=== PATIENT | male | born 1950 | race Caucasian/White ===

== ENCOUNTER 2018-06-18 19:23 | Inpatient (IN) | payer MEDICARE, BC ==
[~2018-06-18] VITALS: Ht 177.8 cm; Wt 80.6 kg
[2018-06-18 20:09] LABS: BASOPHILS % (AUTO) 1 % (0-10); EOSINOPHILS # (AUTO) 0.1 10^3/uL (0.0-0.3); EOSINOPHILS % (AUTO) 2 % (0-10); HEMATOCRIT 40 % (40-54); HEMOGLOBIN 14.1 G/DL (13.3-17.7); LYMPHOCYTES # (AUTO) 1.5 X 10^3 (1.0-4.0); LYMPHOCYTES % (AUTO) 28 % (12-44); MEAN CORPUSCULAR HEMOGLOBIN 31 PG (25-34); MEAN CORPUSCULAR HGB CONC 35 G/DL (32-36); MEAN CORPUSCULAR VOLUME 88 FL (80-99); MEAN PLATELET VOLUME 11.1 FL (7.4-10.4); MONOCYTES # (AUTO) 0.5 X 10^3 (0.0-1.0); MONOCYTES % (AUTO) 9 % (0-12); NEUTROPHILS # (AUTO) 3.4 X 10^3 (1.8-7.8); NEUTROPHILS % (AUTO) 61 % (42-75); PLATELET COUNT 212 10^3/uL (130-400); RED CELL DISTRIBUTION WIDTH 13.4 % (10.0-14.5); WHITE BLOOD COUNT 5.6 10^3/uL (4.3-11.0)
[2018-06-18 20:22] LABS: ALANINE AMINOTRANSFERASE 22 U/L (0-55); ALBUMIN 4.2 GM/DL (3.2-4.5); ALKALINE PHOSPHATASE 50 U/L (40-136); AMYLASE 47 U/L (25-125); BILIRUBIN,TOTAL 0.9 MG/DL (0.1-1.0); BUN/CREATININE RATIO 14; CALCIUM 9.8 MG/DL (8.5-10.1); CARBON DIOXIDE 23 MMOL/L (21-32); CHLORIDE 105 MMOL/L (98-107); CREATININE SERUM 1.18 MG/DL (0.60-1.30); GFR ESTIMATED > 60; GLUCOSE 119 MG/DL (70-105); LIPASE 27 U/L (8-78); POTASSIUM 3.9 MMOL/L (3.6-5.0); SODIUM 138 MMOL/L (135-145); TOTAL PROTEIN 6.6 GM/DL (6.4-8.2)
[2018-06-18] MEDS ORDERED: HOLD METFORMIN - RECEIVED CONTRAST 20 ML VIAL IV SCH (20:45)
[2018-06-18] MEDS ORDERED: IOHEXOL 350 MG/ML 100 ML (OMNIPAQUE 350) VIAL IV ONE (20:45)
[2018-06-18 20:49] LABS: PROTHROMBIN TIME PATIENT 13.2 SEC (12.2-14.7)
--- NOTE | 2018-06-18 20:51 | ED GI ---
General Chief Complaint: Rect Problems Stated Complaint: BLOOD IN STOOL Nursing Triage Note: PT STATES TODAY AROUND 1415 THIS AFTERNOON, HE EXPERIENCED A LOOSE STOOL THAT WAS DESCRIBED MIXED DARK RED AND BRIGHT RED BLOOD. HAS HAD FOUR LOOSE STOOL SINCE THEN, ALL SIMILAR IN CONSISTENCY Sepsis Screen: No Definite Risk Source of Information: Patient Exam Limitations: No Limitations History of Present Illness Date Seen by Provider: Jun 18, 2018 Time Seen by Provider: 20:00 Initial Comments 67-year-old male who presents to the emergency room with complaints of passing large amounts of bright red blood and clots that started around 1415 this afternoon. He has had were similar episodes and one on arrival to the emergency room since they have started. The the emergency room was tory red blood with several dark red clots. He denies pain with the GI bleeding. Timing/Duration: 4-6 Hours Associated Symptoms: Denies Symptoms Allergies and Home Medications Allergies Coded Allergies: No Allergy Information Available (Unverified , 06/18/18) Patient Home Medication List Home Medication List Reviewed: Yes Review of Systems Review of Systems Constitutional: see HPI; No chills, No fever Gastrointestinal: See HPI; Denies Abdominal Pain; Blood Streaked Stools; Denies Diarrhea, Denies Nausea; Rectal Bleeding; Denies Vomiting All Other Systems Reviewed Negative Unless Noted: Yes Past Tzeqipf-Oslngz-Tajalh Hx Past Med/Social Hx: Reviewed Nursing Past Med/Soc Hx Patient Social History Recent Foreign Travel: No Contact w/Someone Who Travel: No Recent Infectious Disease Expo: No Family Medical History Reviewed Nursing Family Hx Physical Exam Vital Signs Vital Signs - First Documented 06/18/18 19:41 Temp 98.3 Pulse 79 Resp 20 B/P (MAP) 150/118 (129) Pulse Ox 96 O2 Delivery Room Air Capillary Refill : Less Than 3 Seconds Height/Weight/BMI Height: 5'10.00" Weight: 185lbs. oz. 83.588575nz; BMI Method:Stated General Appearance: WD/WN, no apparent distress Respiratory: chest non-tender, lungs clear, normal breath sounds, no respiratory distress, no accessory muscle use Cardiovascular: normal peripheral pulses, regular rate, rhythm, no edema, no gallop, no JVD, no murmur Gastrointestinal: normal bowel sounds, non tender, soft, no organomegaly, no pulsatile mass Rectal: heme positive stool Extremities: normal capillary refill Neurologic/Psychiatric: alert, normal mood/affect, oriented x 3 Skin: normal color, warm/dry Progress/Results/Core Measures Results/Orders Lab Results Laboratory Tests Test 06/18/18 19:50 06/18/18 20:45 Range/Units White Blood Count 5.6 4.3-11.0 10^3/uL Red Blood Count 4.54 4.35-5.85 10^6/uL Hemoglobin 14.1 13.3-17.7 G/DL Hematocrit 40 40-54 % Mean Corpuscular Volume 88 80-99 FL Mean Corpuscular Hemoglobin 31 25-34 PG Mean Corpuscular Hemoglobin Concent 35 32-36 G/DL Red Cell Distribution Width 13.4 10.0-14.5 % Platelet Count 212 130-400 10^3/uL Mean Platelet Volume 11.1 H 7.4-10.4 FL Neutrophils (%) (Auto) 61 42-75 % Lymphocytes (%) (Auto) 28 12-44 % Monocytes (%) (Auto) 9 0-12 % Eosinophils (%) (Auto) 2 0-10 % Basophils (%) (Auto) 1 0-10 % Neutrophils # (Auto) 3.4 1.8-7.8 X 10^3 Lymphocytes # (Auto) 1.5 1.0-4.0 X 10^3 Monocytes # (Auto) 0.5 0.0-1.0 X 10^3 Eosinophils # (Auto) 0.1 0.0-0.3 10^3/uL Basophils # (Auto) 0.0 0.0-0.1 10^3/uL Prothrombin Time 13.2 12.2-14.7 SEC INR Comment 1.0 0.8-1.4 Sodium Level 138 135-145 MMOL/L Potassium Level 3.9 3.6-5.0 MMOL/L Chloride Level 105 98-107 MMOL/L Carbon Dioxide Level 23 21-32 MMOL/L Anion Gap 10 5-14 MMOL/L Blood Urea Nitrogen 16 7-18 MG/DL Creatinine 1.18 0.60-1.30 MG/DL Estimat Glomerular Filtration Rate > 60 BUN/Creatinine Ratio 14 Glucose Level 119 H 70-105 MG/DL Calcium Level 9.8 8.5-10.1 MG/DL Corrected Calcium 9.6 8.5-10.1 MG/DL Total Bilirubin 0.9 0.1-1.0 MG/DL Aspartate Amino Transf (AST/SGOT) 22 5-34 U/L Alanine Aminotransferase (ALT/SGPT) 22 0-55 U/L Alkaline Phosphatase 50 40-136 U/L Total Protein 6.6 6.4-8.2 GM/DL Albumin 4.2 3.2-4.5 GM/DL Amylase Level 47 25-125 U/L Lipase 27 8-78 U/L Urine Color YELLOW Urine Clarity CLEAR Urine pH 6 5-9 Urine Specific Diggs 1.015 L 1.016-1.022 Urine Protein NEGATIVE NEGATIVE Urine Glucose (UA) NEGATIVE NEGATIVE Urine Ketones NEGATIVE NEGATIVE Urine Nitrite NEGATIVE NEGATIVE Urine Bilirubin NEGATIVE NEGATIVE Urine Urobilinogen NORMAL NORMAL MG/DL Urine Leukocyte Esterase NEGATIVE NEGATIVE Urine RBC (Auto) NEGATIVE NEGATIVE Urine RBC NONE /HPF Urine WBC NONE /HPF Urine Squamous Epithelial Cells RARE /HPF Urine Crystals NONE /LPF Urine Bacteria NEGATIVE /HPF Urine Casts NONE /LPF Urine Mucus NEGATIVE /LPF Urine Culture Indicated NO My Orders Orders - JANE BEDOYA Comprehensive Metabolic Panel (06/18/18 20:01) Lipase (06/18/18 20:01) Amylase (06/18/18 20:01) Ua Culture If Indicated (06/18/18 20:01) Ed Iv/Invasive Line Start (06/18/18 20:01) Cbc With Automated Diff (06/18/18 20:01) Type And Screen (06/18/18 20:01) Ct Abdomen/Pelvis W (06/18/18 20:20) Iohexol Injection (Omnipaque 350 Mg/Ml 1 (06/18/18 20:45) Received Contrast (Hold Metformin- Contr (06/18/18 20:45) Protime With Inr (06/18/18 20:38) Ondansetron Injection (Zofran Injectio (06/18/18 22:45) Medications Given in ED Current Medications Medications Dose Ordered Sig/Nigel Route Start Time Stop Time Status Last Admin Dose Admin Iohexol 100 ml ONCE ONCE IV 06/18/18 20:45 06/18/18 21:46 DC 06/18/18 22:03 100 ML Ondansetron HCl 4 mg ONCE ONCE IVP 06/18/18 22:45 06/18/18 22:46 DC 06/18/18 22:51 4 MG Vital Signs/I&O 06/18/18 19:41 Temp 98.3 Pulse 79 Resp 20 B/P (MAP) 150/118 (129) Pulse Ox 96 O2 Delivery Room Air Blood Pressure Mean: 129 Progress Progress Note : Time: 22:36 Progress Note I have seen and evaluated the patient. I have informed him of his laboratory and imaging studies. I discussed these findings with Dr. Lara and Dr. Ivory. They agree to accept the patient to their services. Dr. Ivory recommends nothing by mouth and recheck hemoglobin in 6 hours. Diagnostic Imaging Diagonstic Imaging: CT Plain Films/CT/US/NM/MRI: abdomen, pelvis Comments NAME: MILY ALBARADO MED REC#: [id number] PT STATUS: REG ER : 1950 PHYSICIAN: JANE BEDOYA ADMIT DATE: 06/18/18/ER Signed Date of Exam:06/18/18 CT ABDOMEN/PELVIS W PROCEDURE: CT abdomen and pelvis with contrast. TECHNIQUE: Multiple contiguous axial images were obtained through the abdomen and pelvis after administration of intravenous contrast. Auto Exposure Controls were utilized during the CT exam to meet ALARA standards for radiation dose reduction. INDICATION: Bloody watery stools 4 times this morning. No pain, previous appendectomy. COMPARISON STUDIES: None FINDINGS: The lung bases are clear. Liver, gallbladder, spleen, pancreas, adrenal glands and kidneys appear normal. Urinary bladder normal. There is no ascites, free air or abnormal adenopathy. Mild arteriosclerotic disease is present. Multiple diverticula are present in the sigmoid colon. Scattered diverticula are seen throughout the colon. No inflammatory or obstructive changes are present. Bone windows demonstrate mild degenerative changes. IMPRESSION: There is fairly severe diverticulosis. No inflammatory changes are present. Dictated by: Dictated on workstation # [id number] Dict: 06/18/182209 Trans: 06/18/182230 COUNTS INCLUDE 234 BEDS AT THE [facility] [id number] Interpreted by: NOE BAKER MD Electronically signed by: NOE BAKER MD 06/18/182230 Reviewed: Reviewed by Me Departure Communication (Admissions) Time/Spoke to Admitting Phy: 22:36 Dr. Lara Time/Spoke to Consulting Phy: 22:36 Dr. Ivory Impression Primary Impression: GI bleed Disposition: 09 ADMITTED INPATIENT Condition: Stable Admissions Decision to Admit Reason: Admit from ER (General) Decision to Admit/Date: Jun 18, 2018 Time/Decision to Admit Time: 22:36 Departure-Patient Inst. Referrals: DARSHAN ANDREWS MD (PCP/Family) Primary Care Physician JANE BEDOYA Jun 18, 2018 20:51
[2018-06-18 20:53] LABS: BILIRUBIN,URINE NEGATIVE (NEGATIVE); CLARITY,URINE CLEAR; COLOR,URINE YELLOW; GLUCOSE, URINE (UA) NEGATIVE (NEGATIVE); KETONES,URINE NEGATIVE (NEGATIVE); LEUKOCYTE ESTERASE ,URINE NEGATIVE (NEGATIVE); NITRITE,URINE NEGATIVE (NEGATIVE); PH,URINE 6 (5-9); PROTEIN,URINE NEGATIVE (NEGATIVE); UROBILINOGEN,URINE NORMAL (NORMAL)
[2018-06-18 21:03] LABS: BACTERIA,URINE NEGATIVE /HPF; SQUAMOUS EPITHELIAL CELL,UR RARE /HPF
--- NOTE | 2018-06-18 22:29 | Diagnostic Imaging Report ---
PROCEDURE: CT abdomen and pelvis with contrast. TECHNIQUE: Multiple contiguous axial images were obtained through the abdomen and pelvis after administration of intravenous contrast. Auto Exposure Controls were utilized during the CT exam to meet ALARA standards for radiation dose reduction. INDICATION: Bloody watery stools 4 times this morning. No pain, previous appendectomy. COMPARISON STUDIES: None FINDINGS: The lung bases are clear. Liver, gallbladder, spleen, pancreas, adrenal glands and kidneys appear normal. Urinary bladder normal. There is no ascites, free air or abnormal adenopathy. Mild arteriosclerotic disease is present. Multiple diverticula are present in the sigmoid colon. Scattered diverticula are seen throughout the colon. No inflammatory or obstructive changes are present. Bone windows demonstrate mild degenerative changes. IMPRESSION: There is fairly severe diverticulosis. No inflammatory changes are present. Dictated by: Dictated on workstation # [id number]
[2018-06-18] MEDS ORDERED: ONDANSETRON 4 MG/2 ML (SDV) Z0FRAN IVP ONE (22:45)
[2018-06-19] VITALS (7 sets, daily range): BP systolic 119–138; BP diastolic 75–89
--- NOTE | 2018-06-19 00:25 | NUR ---
MILY ALBARADO admitted to room 429-1, with an admitting diagnosis of GI BLEED, on 06/18/18 from ED via WC, accompanied by STAFF AND FAMILY.MILY ALBARADO introduced to surroundings, call light, bed controls, phone, TV, temperature control, lights, meal times, smoking policy, visitor policy, side rail policy, bathrooms and showers. Patient Rights given to patient in the handbook. MILY ALBARADO verbalizes understanding that [facility] is not responsible for the loss or damage to any personal effects or valuables that are kept in the patients possession during their hospitalization. PLANS OF CARE DISCUSSED WITH PT AND PT VERBALIZES UNDERSTANDING. MILY ALBARADO verbalizes understanding of Interdisciplinary Patient Education. Patient and/or family were informed about the Rapid Response Team and its purpose.
[2018-06-19 02:11] LABS: BASOPHILS % (AUTO) 1 % (0-10); EOSINOPHILS # (AUTO) 0.1 10^3/uL (0.0-0.3); EOSINOPHILS % (AUTO) 3 % (0-10); HEMATOCRIT 37 % (40-54); HEMOGLOBIN 12.9 G/DL (13.3-17.7); LYMPHOCYTES # (AUTO) 1.7 X 10^3 (1.0-4.0); LYMPHOCYTES % (AUTO) 33 % (12-44); MEAN CORPUSCULAR HEMOGLOBIN 31 PG (25-34); MEAN CORPUSCULAR HGB CONC 35 G/DL (32-36); MEAN CORPUSCULAR VOLUME 89 FL (80-99); MEAN PLATELET VOLUME 10.5 FL (7.4-10.4); MONOCYTES # (AUTO) 0.5 X 10^3 (0.0-1.0); MONOCYTES % (AUTO) 9 % (0-12); NEUTROPHILS # (AUTO) 2.7 X 10^3 (1.8-7.8); NEUTROPHILS % (AUTO) 54 % (42-75); PLATELET COUNT 189 10^3/uL (130-400); RED CELL DISTRIBUTION WIDTH 13.4 % (10.0-14.5); WHITE BLOOD COUNT 5.1 10^3/uL (4.3-11.0)
[2018-06-19 02:29] LABS: ALANINE AMINOTRANSFERASE 19 U/L (0-55); ALBUMIN 3.9 GM/DL (3.2-4.5); ALKALINE PHOSPHATASE 43 U/L (40-136); BILIRUBIN,TOTAL 0.9 MG/DL (0.1-1.0); BUN/CREATININE RATIO 18; CALCIUM 9.2 MG/DL (8.5-10.1); CARBON DIOXIDE 22 MMOL/L (21-32); CHLORIDE 105 MMOL/L (98-107); CREATININE SERUM 0.96 MG/DL (0.60-1.30); GFR ESTIMATED > 60; GLUCOSE 107 MG/DL (70-105); POTASSIUM 3.7 MMOL/L (3.6-5.0); SODIUM 137 MMOL/L (135-145); TOTAL PROTEIN 5.9 GM/DL (6.4-8.2)
[2018-06-19] MEDS ORDERED: fentaNYL INJECTION 100 MCG/2 ML AMP IV PRN (02:30)
[2018-06-19] MEDS ORDERED: ACETAMINOPHEN 325 MG TABLET PO PRN (02:30)
[2018-06-19] MEDS ORDERED: ONDANSETRON 4 MG/2 ML (SDV) Z0FRAN IV PRN (02:30)
[2018-06-19] MEDS ORDERED: LISI10TA2 PO (08:34)
[2018-06-19] MEDS ORDERED: TRIA1CAP4 PO (08:34)
[2018-06-19] MEDS ORDERED: SIMV20TA3 PO (08:34)
[2018-06-19] MEDS ORDERED: ASPI-983 PO (08:42)
[2018-06-19] MEDS ORDERED: VITA400C60 PO (08:42)
[2018-06-19] MEDS ORDERED: IBUP-30 PO (08:42)
[2018-06-19] MEDS ORDERED: CHOL5000 PO (08:42)
[2018-06-19] MEDS ORDERED: MULT-633 PO (08:42)
[2018-06-19] MEDS ORDERED: CYAN500011 PO (08:42)
[2018-06-19] MEDS ORDERED: CETI10TA20 PO (08:42)
[2018-06-19] MEDS ORDERED: FISH1CAP15 PO (08:42)
[2018-06-19] MEDS ORDERED: VITA1CAP PO (08:42)
[2018-06-19] MEDS ORDERED: L.AC1CAP6 PO (08:42)
[2018-06-19] MEDS ORDERED: CALC600T12 PO (08:42)
--- NOTE | 2018-06-19 08:44 | NUR ---
SPOKE WITH THE PATIENT ABOUT HIS MEDICATIONS. HE HAD A LIST WITH HIM AND I COMPARED THE PRESCRIPTION MEDICATION WITH THE EXT MED HX. HIS LISINOPRIL WAS FILLED #90 FOR 90 DAYS ONCE DAILY HOWEVER HE STATES CURRENTLY HE IS TAKING 1/2 TAB DAILY.
[2018-06-19] MEDS: NS IV 1000 ML 1,000 ML IV SCH ×2 (09:30→19:56)
[2018-06-19] MEDS ORDERED: 1/2 NS IV SOLUTION 1,000 ML IV ONE (09:36)
--- NOTE | 2018-06-19 10:48 | History & Physical-Hospitalist ---
History of Present Illness HPI/Chief Complaint Chief complaint: Rectal bleeding HPI: This is a 67yoWM clinic pt of Dr. Cruz who just recently had a normal well check in Dr. Rob office a couple months ago including a hemoccult card presented to the ER with rectal bleeding. The bleedings fairly extensive resulting in a two point hgb drop which was closely monitored without any clinical decompensation. Dr. Ivory will see him in consultation, evaluate the possible diverticular bleed, and although the pt has never had a colonoscopy we may need to wait for that colonoscopy as an outpatient after the diverticular bleed site has been healed to prevent perforation but that will be up to Dr. Ivory. Pt will be maintained on IV fluids for supportive care, initiated clear liquid diet since he is hungry and will monitor pt closely. He does have HTN and HLP both under excellent control on medication. He does drink alcohol on occasionally three shots at night, chews tobacco, and is retired from the [employer] for 27 years. Pt is and his daughter is at the bedside. Source: patient, family Exam Limitations: no limitations Date Seen 06/19/18 Time Seen by a Provider: 09:45 Attending Physician Latia Ho Katrina M MD Referring Physician Date of Admission Jun 18, 2018 at 22:38 Home Medications & Allergies Home Medications Reviewed patient Home Medication Reconciliation performed by pharmacy medication reconciliations field operations technician and/or nursing. Patients Allergies have been reviewed. Allergies Allergies Coded Allergies No Allergy Information Available (Unverified06/18/18) Past Lamjmra-Rfacvx-Uimzkr Hx Past Med/Social Hx: Reviewed Nursing Past Med/Soc Hx, Reviewed and Corrections made Patient Social History Marrital Status: Employed/Student: retired ([employer]) Alcohol Use: Denies Use Recreational Drug Use: No Smoking Status: Current Everyday Smoker Type Used: Smokeless Tobacco Recent Foreign Travel: No Contact w/other who traveled: No Recent Hopitalizations: No Recent Infectious Disease Expo: No Immunizations Up To Date Tetanus Booster (TDap): Less than 5yrs Pediatric: Yes Seasonal Allergies Seasonal Allergies: Yes Past Medical History Surgeries: Orthopedic Cardiac: High Cholesterol, Hypertension Family History Reviewed Nursing Family Hx Review of Systems Constitutional: see HPI EENTM: no symptoms reported Respiratory: no symptoms reported Cardiovascular: no symptoms reported Gastrointestinal: loss of appetite, melena, nausea Genitourinary: no symptoms reported Musculoskeletal: no symptoms reported Skin: no symptoms reported Psychiatric/Neurological: No Symptoms Reported All Other Systems Reviewed Negative Unless Noted: Yes Physical Exam Physical Exam Vital Signs Vital Signs - First Documented 06/18/18 19:41 Temp 98.3 Pulse 79 Resp 20 B/P (MAP) 150/118 (129) Pulse Ox 96 O2 Delivery Room Air Capillary Refill : Less Than 3 Seconds Height, Weight, BMI Height: 5'10.00" Weight: 177lbs. 11.2oz. 80.027672ko; 25.5 BMI Method:Stated General Appearance: No Apparent Distress, WD/WN, Chronically ill Eyes: Right Eye Normal Inspection, Right Eye PERRL HEENT: PERRL/EOMI, Normal ENT Inspection, Pharynx Normal, Moist Mucous Membranes Neck: Full Range of Motion, Normal Inspection, Non Tender Respiratory: Chest Non Tender, Lungs Clear, Normal Breath Sounds, No Accessory Muscle Use, No Respiratory Distress Cardiovascular: Regular Rate, Rhythm, No Edema, No Gallop, No JVD, No Murmur, Normal Peripheral Pulses Gastrointestinal: Normal Bowel Sounds, No Organomegaly, No Pulsatile Mass, Non Tender, Soft Back: Normal Inspection, No CVA Tenderness, No Vertebral Tenderness Extremity: Normal Capillary Refill, Normal Inspection, Normal Range of Motion, Non Tender, No Calf Tenderness, No Pedal Edema Neurologic/Psychiatric: Alert, Oriented x3, No Motor/Sensory Deficits, Normal Mood/Affect Skin: Normal Color, Warm/Dry Lymphatic: No Adenopathy Results Results/Procedures Labs Laboratory Tests 06/18/18 19:50 06/19/18 02:00 06/19/18 20:10 Patient resulted labs reviewed. Assessment/Plan Admission Diagnosis Assessment: GI Bleed likely diverticular Acute blood loss anemia HTN HLP Tobacco use Plan: Dr Ivory appreciated IVF NPO Admission Status: Inpatient Order (span 2 midnights) Reason for Inpatient Admission: GI Bleed will require 3 days of monitoring and transfusions and endoscopy Diagnosis/Problems Diagnosis/Problems (1) GI bleed Status: Acute Qualifiers: GI bleed type/associated pathology: unspecified gastrointestinal hemorrhage type Qualified Codes: K92.2 - Gastrointestinal hemorrhage, unspecified (2) Anemia due to blood loss, acute Status: Acute (3) Hypertension Status: Chronic Qualifiers: Hypertension type: essential hypertension Qualified Codes: I10 - Essential (primary) hypertension (4) Hyperlipidemia Status: Chronic Qualifiers: Hyperlipidemia type: mixed hyperlipidemia Qualified Codes: E78.2 - Mixed hyperlipidemia Clinical Quality Measures DVT/VTE Risk/Contraindication: Risk Factor Score Per Nursin RFS Level Per Nursing on Admit: 2=Moderate LATIA HO DO Jun 19, 2018 10:48
--- NOTE | 2018-06-19 20:02 | Consultation ---
History of Present Illness History of Present Illness Patient Consulted On(drew/time) 06/19/18 19:56 Date Seen by Provider: Jun 19, 2018 Time Seen by Provider: 11:27 History of Present Illness consult request by dr chaudhry for gi bleed patient is a 67 year old male who yesterday afternoon began passing bright red blood per rectum. He does not have any abdominal pain. He states with every bowel movement it would be essentially blood. He states nothing make it better or worse. He states that his last one was about 4 this morning. Since he has not had any urge to have a bm. He has never had a colonoscopy. Patient had a ct scan that demonstrated significant diverticulosis no other abnormality. Denies n/v fever sweats chills shortness of breath or chest pain. Allergies and Home Medications Allergies Coded Allergies: No Allergy Information Available (Unverified , 06/18/18) Home Medications Aspirin 81 Mg Tablet.dr, 81 MG PO DAILY, (Reported) Calcium Carbonate 600 Mg Tablet, 600 MG PO DAILY, (Reported) Cetirizine HCl 10 Mg Tablet, 10 MG PO DAILY PRN for ALLERGIES, (Reported) Cholecalciferol (Vitamin D3) 5,000 Unit Capsule, 5,000 UNIT PO DAILY, (Reported) Cyanocobalamin (Vitamin B-12) 5,000 Mcg Capsule, 5,000 MCG PO DAILY, (Reported) Fish Oil/Dha/Epa 1 Each Capsule, 1,200 MG PO DAILY, (Reported) Ibuprofen 200 Mg Tablet, 400-800 MG PO TID PRN for PAIN-MILD, (Reported) L.acidoph & Paracasei,B.lactis 1 Each Capsule, 1 CAP PO DAILY, (Reported) Lisinopril 10 Mg Tablet, 5 MG PO DAILY, (Reported) TAKES 1/2 (10MG) TABLET Multivitamin 1 Each Tablet, 1 TAB PO DAILY, (Reported) Simvastatin 20 Mg Tablet, 20 MG PO HS, (Reported) Triamterene/Hydrochlorothiazid 1 Each Capsule, 1 CAP PO DAILY, (Reported) Vitamin B Complex 1 Each Capsule, 1 CAP PO DAILY, (Reported) Vitamin E Acetate 400 Unit Capsule, 400 UNIT PO DAILY, (Reported) Patient Home Medication List Home Medication List Reviewed: Yes Past Hlvyegx-Uiniiy-Siosrr Hx Patient Social History Alcohol Use: Denies Use Recreational Drug Use: No Smoking Status: Current Everyday Smoker Type Used: Smokeless Tobacco Recent Foreign Travel: No Contact w/Someone Who Travel: No Recent Infectious Disease Expo: No Recent Hopitalizations: No Immunizations Up To Date Tetanus Booster (TDap): Less than 5yrs PED Vaccines UTD: Yes Seasonal Allergies Seasonal Allergies: Yes Surgeries History of Surgeries: Yes (RIGHT THUMB) Surgeries: Orthopedic Respiratory History of Respiratory Disorde: No Cardiovascular History of Cardiac Disorders: Yes Cardiac Disorders: Hypertension Neurological History of Neurological Disord: No Genitourinary History of Genitourinary Disor: No Gastrointestinal History of Gastrointestinal Di: No Musculoskeletal History of Musculoskeletal Dis: No Endocrine History of Endocrine Disorders: No HEENT History of HEENT Disorders: No Cancer History of Cancer: No Psychosocial History of Psychiatric Problem: No Integumentary History of Skin or Integumenta: No Family Medical History Significant Family History: No Pertinent Family Hx Review of Systems-General Constitutional: no symptoms reported EENTM: no symptoms reported Respiratory: no symptoms reported Cardiovascular: no symptoms reported Gastrointestinal: see HPI Genitourinary: no symptoms reported Skin: no symptoms reported Psychiatric/Neurological: No Symptoms Reported Physical Exam-General Problems Physical Exam Vital Signs Vital Signs - First Documented 06/18/18 19:41 Temp 98.3 Pulse 79 Resp 20 B/P (MAP) 150/118 (129) Pulse Ox 96 O2 Delivery Room Air Capillary Refill : Less Than 3 Seconds General Appearance: WD/WN, no apparent distress HEENT: PERRL/EOMI, normal ENT inspection Neck: non-tender, supple Respiratory: chest non-tender, no respiratory distress, no accessory muscle use Cardiovascular: regular rate, rhythm Gastrointestinal: non tender, soft Rectal: deferred Back: normal inspection, no CVA tenderness, no vertebral tenderness Neurologic/Psychiatric: photostat operator helper II-XII nml as tested, no motor/sensory deficits, alert, normal mood/affect, oriented x 3 Skin: normal color, warm/dry Lymphatic: no adenopathy Data Review Labs Laboratory Tests 06/18/18 20:45: Urine Color YELLOW, Urine Clarity CLEAR, Urine pH 6, Urine Specific Seney 1.015L, Urine Protein NEGATIVE, Urine Glucose (UA) NEGATIVE, Urine Ketones NEGATIVE, Urine Nitrite NEGATIVE, Urine Bilirubin NEGATIVE, Urine Urobilinogen NORMAL, Urine Leukocyte Esterase NEGATIVE, Urine RBC (Auto) NEGATIVE, Urine RBC NONE, Urine WBC NONE, Urine Squamous Epithelial Cells RARE, Urine Crystals NONE , Urine Bacteria NEGATIVE, Urine Casts NONE, Urine Mucus NEGATIVE, Urine Culture Indicated NO 06/19/18 02:00: White Blood Count 5.1, Red Blood Count 4.15L, Hemoglobin 12.9L, Hematocrit 37L, Mean Corpuscular Volume 89, Mean Corpuscular Hemoglobin 31, Mean Corpuscular Hemoglobin Concent 35, Red Cell Distribution Width 13.4, Platelet Count 189, Mean Platelet Volume 10.5H, Neutrophils (%) (Auto) 54, Lymphocytes (%) (Auto) 33 , Monocytes (%) (Auto) 9, Eosinophils (%) (Auto) 3, Basophils (%) (Auto) 1, Neutrophils # (Auto) 2.7, Lymphocytes # (Auto) 1.7, Monocytes # (Auto) 0.5, Eosinophils # (Auto) 0.1, Basophils # (Auto) 0.0, Sodium Level 137, Potassium Level 3.7, Chloride Level 105, Carbon Dioxide Level 22, Anion Gap 10, Blood Urea Nitrogen 17, Creatinine 0.96, Estimat Glomerular Filtration Rate > 60, BUN/ Creatinine Ratio 18, Glucose Level 107H, Calcium Level 9.2, Corrected Calcium 9.3, Total Bilirubin 0.9, Aspartate Amino Transf (AST/SGOT) 18, Alanine Aminotransferase (ALT/SGPT) 19, Alkaline Phosphatase 43, Total Protein 5.9L, Albumin 3.9 Assessment/Plan Assessment/Plan Assessment/Plan GI bleed diverticulosis likely diverticular bleed. he has not had any more bloody bm since around 4 this morning. Will likely stop on its own. If does stop would recommend colonoscopy on outpatient basis. If does not stop and hgb continues to drop would recommend inpatient colonoscopy. Patient on clear liquids. Follow hgb. will follow Clinical Quality Measures DVT/VTE Risk/Contraindication: Risk Factor Score Per Nursin RFS Level Per Nursing on Admit: 2=Moderate SHAGUFTA MINOR DO Jun 19, 2018 20:02
[2018-06-19 20:14] LABS: HEMOGLOBIN 11.5 G/DL (13.3-17.7); RED CELL DISTRIBUTION WIDTH 13.4 % (10.0-14.5); WHITE BLOOD COUNT 4.2 10^3/uL (4.3-11.0)
[2018-06-20 00:32] VITALS: BP 122/61
[2018-06-20 04:00] VITALS: BP 125/75
[2018-06-20] MEDS: NS IV 1000 ML 1,000 ML IV SCH (04:53)
[2018-06-20 06:00] LABS: HEMOGLOBIN 11.4 G/DL (13.3-17.7); MEAN PLATELET VOLUME 11.1 FL (7.4-10.4); RED CELL DISTRIBUTION WIDTH 13.2 % (10.0-14.5); WHITE BLOOD COUNT 3.8 10^3/uL (4.3-11.0)
[2018-06-20 08:00] VITALS: BP 124/79
--- NOTE | 2018-06-20 10:12 | Progress Note ---
Subjective Date Seen by a Provider: Jun 20, 2018 Time Seen by a Provider: 10:10 Subjective/Events-last exam No more blood per rectum. Hgb stable. No abdominal pain. Denies any new complaints. Denies fever sweats chills shortness of breath or chest pain. Objective Exam Vital Signs Date Time Temp Pulse Resp B/P (MAP) Pulse Ox O2 Delivery O2 Flow Rate FiO2 06/20/18 08:00 97.1 65 18 124/79 (94) 98 Room Air 06/20/18 04:00 97.6 61 18 125/75 (92) 96 Room Air 06/20/18 00:32 98.4 61 18 122/61 (81) 95 Room Air 06/19/18 20:00 99.0 53 18 126/75 (92) 98 Room Air 06/19/18 20:00 Room Air 06/19/18 16:00 98.3 61 18 119/77 (91) 100 Room Air 06/19/18 12:00 97.6 68 18 130/77 (94) 97 Room Air I & O 06/20/18 07:00 Intake Total 5420 ml Balance 5420 ml Capillary Refill : Less Than 3 Seconds General Appearance: No Apparent Distress, WD/WN, Chronically ill HEENT: PERRL/EOMI, Normal ENT Inspection, Pharynx Normal, Moist Mucous Membranes Neck: Full Range of Motion, Normal Inspection, Non Tender Respiratory: Chest Non Tender, No Accessory Muscle Use, No Respiratory Distress Cardiovascular: Regular Rate, Rhythm, No Edema, No Gallop, Normal Peripheral Pulses Gastrointestinal: non tender, soft Extremity: Normal Capillary Refill, Normal Inspection, Normal Range of Motion, Non Tender, No Calf Tenderness, No Pedal Edema Neurologic/Psychiatric: Alert, Oriented x3, No Motor/Sensory Deficits, Normal Mood/Affect Skin: Normal Color, Warm/Dry Lymphatic: No Adenopathy Results Lab Laboratory Tests 06/19/18 20:10: White Blood Count 4.2L, Red Blood Count 3.69L, Hemoglobin 11.5L, Hematocrit 33L , Mean Corpuscular Volume 90, Mean Corpuscular Hemoglobin 31, Mean Corpuscular Hemoglobin Concent 35, Red Cell Distribution Width 13.4, Platelet Count 171, Mean Platelet Volume 10.0 06/20/18 05:25: White Blood Count 3.8L, Red Blood Count 3.70L, Hemoglobin 11.4L, Hematocrit 34L , Mean Corpuscular Volume 91, Mean Corpuscular Hemoglobin 31, Mean Corpuscular Hemoglobin Concent 34, Red Cell Distribution Width 13.2, Platelet Count 180, Mean Platelet Volume 11.1H Assessment/Plan Assessment/Plan Assessment/Plan GI bleed diverticulosis likely diverticular bleed. he has not had any more bloody Patient wanting to go home would recommend colonoscopy on outpatient basis. . can f/u outpatient Clinical Quality Measures DVT/VTE Risk/Contraindication: Risk Factor Score Per Nursin RFS Level Per Nursing on Admit: 2=Moderate SHAGUFTA MINOR DO Jun 20, 2018 10:12
--- NOTE | 2018-06-20 10:32 | Discharge Summary-Hospitalist ---
Diagnosis/Chief Complaint Date of Admission Jun 18, 2018 at 22:38 Date of Discharge Discharge Date: Jun 20, 2018 Admission Diagnosis Assessment: GI Bleed likely diverticular Acute blood loss anemia HTN HLP Tobacco use Plan: Dr Ivory appreciated IVF NPO Discharge Diagnosis (1) GI bleed Status: Resolved (2) Anemia due to blood loss, acute Status: Acute (3) Hypertension Status: Chronic (4) Hyperlipidemia Status: Chronic Discharge Summary Discharge Physical Exam Allergies: Coded Allergies: No Allergy Information Available (Unverified , 06/18/18) Vitals & I&Os Vital Signs Date Time Temp Pulse Resp B/P (MAP) Pulse Ox O2 Delivery O2 Flow Rate FiO2 06/20/18 11:15 65 18 124/79 98 Room Air 06/20/18 08:00 97.1 General Appearance: No Apparent Distress, WD/WN, Chronically ill Respiratory: Chest Non Tender, Lungs Clear, Normal Breath Sounds, No Accessory Muscle Use, No Respiratory Distress Cardiovascular: Regular Rate, Rhythm, No Edema, No Gallop, No JVD, No Murmur, Normal Peripheral Pulses Gastrointestinal: Non Tender, Soft Neurologic/Psychiatric: Alert, Oriented x3, No Motor/Sensory Deficits, Normal Mood/Affect Hospital Course Was the Problem List Reviewed?: Yes Hospital course: Pt had an uneventful hospital course after he had a great deal of rectal bleeding, Hgb only dropped two points and did not require transfusion. He had never had a colonoscopy so he will have follow up with Dr. Ivory in the next 4-6 weeks and will undergo that procedure. All home medications were restarted except for aspirin and ibuprofen due to risk of recurrent diverticular bleed. Labs (last 24 hrs) Laboratory Tests 06/19/18 20:10: White Blood Count 4.2L, Red Blood Count 3.69L, Hemoglobin 11.5L, Hematocrit 33L , Mean Corpuscular Volume 90, Mean Corpuscular Hemoglobin 31, Mean Corpuscular Hemoglobin Concent 35, Red Cell Distribution Width 13.4, Platelet Count 171, Mean Platelet Volume 10.0 06/20/18 05:25: White Blood Count 3.8L, Red Blood Count 3.70L, Hemoglobin 11.4L, Hematocrit 34L , Mean Corpuscular Volume 91, Mean Corpuscular Hemoglobin 31, Mean Corpuscular Hemoglobin Concent 34, Red Cell Distribution Width 13.2, Platelet Count 180, Mean Platelet Volume 11.1H Patient resulted labs reviewed. Pending Labs Discussion & Recommendations Discharge Planning: <30 minutes discharge planning Discharge Home Medications: Active Scripts Active Reported Fish Oil 1,200 mg Fish Oil (Fish Oil/Dha/Epa) 1 Each Capsule 1,200 Mg PO DAILY Calcium (Calcium Carbonate) 600 Mg Tablet 600 Mg PO DAILY Vitamin D3 (Cholecalciferol (Vitamin D3)) 5,000 Unit Capsule 5,000 Unit PO DAILY Vitamin B Complex 1 Each Capsule 1 Cap PO DAILY Vitamin B-12 (Cyanocobalamin (Vitamin B-12)) 5,000 Mcg Capsule 5,000 Mcg PO DAILY Vitamin E (Vitamin E Acetate) 400 Unit Capsule 400 Unit PO DAILY Zyrtec (Cetirizine HCl) 10 Mg Tablet 10 Mg PO DAILY PRN Probiotic (L.acidoph & Paracasei,B.lactis) 1 Each Capsule 1 Cap PO DAILY Daily Value (Multivitamin) 1 Each Tablet 1 Tab PO DAILY Triamterene-Hctz 37.5-25 mg Cp (Triamterene/Hydrochlorothiazid) 1 Each Capsule 1 Cap PO DAILY Simvastatin 20 Mg Tablet 20 Mg PO HS Lisinopril 10 Mg Tablet 5 Mg PO DAILY TAKES 1/2 (10MG) TABLET Instructions to patient/family Please see electronic discharge instructions given to patient. Clinical Quality Measures DVT/VTE Risk/Contraindication: Risk Factor Score Per Nursin RFS Level Per Nursing on Admit: 2=Moderate Problem Qualifiers (1) GI bleed: GI bleed type/associated pathology: unspecified gastrointestinal hemorrhage type Qualified Codes: K92.2 - Gastrointestinal hemorrhage, unspecified (2) Hypertension: Hypertension type: essential hypertension Qualified Codes: I10 - Essential ( primary) hypertension (3) Hyperlipidemia: Hyperlipidemia type: mixed hyperlipidemia Qualified Codes: E78.2 - Mixed hyperlipidemia DRAGAN HO DO Jun 20, 2018 10:32
[2018-06-20 11:15] VITALS: BP 124/79
--- NOTE | 2018-06-20 11:15 | NUR ---
MILY ALBARADO demonstrates understanding of discharge instructions and accurately returns instructions upon questioning. Copy of Post-Discharge Instructions and Medication Discharge Instructions given to patient and . MILY ALBARADO is able to manage continuing needs after discharge. Patients belongings returned to patient. Skin dry and intact; no breakdown noted. Patient discharged from [facility]- on 06/20/18 at 1115. MILY ALBARADO left floor ambulatory, accompanied by staff and .
[2018-06-20 12:31] VITALS: BP 124/79
== END 2018-06-20 11:15 | disposition home or self-care (01) | DRG 378 ==
LOC: EDUNIT# 19:23 → ER 19:24 → 4TH 22:38
PROVIDERS: ADMIT Internal Medicine; ATTEND Internal Medicine
DX: K57.51 Diverticulosis of both small and large intestine without perforation or abscess with bleeding (principal); D62 Acute posthemorrhagic anemia; I10 Essential (primary) hypertension; E78.2 Mixed hyperlipidemia; F17.220 Nicotine dependence, chewing tobacco, uncomplicated; J30.2 Other seasonal allergic rhinitis
CPT/HCPCS: 36415; 74177; 80053; 81000; 82150; 83690; 85025; 85027; 85610; 86850; 86900; 86901; 96374

== ENCOUNTER 2018-07-11 12:00 | Outpatient (CLI) | payer MEDICARE, BC ==
[~2018-07-11] VITALS: Ht 177.8 cm; Wt 80.6 kg
[~2018-07-11 12:00] MED LIST: ASPI-983 PO; CALC600T12 PO; CETI10TA20 PO; CHOL5000 PO; CYAN500011 PO; FISH1CAP15 PO; IBUP-30 PO; L.AC1CAP6 PO; LISI10TA2 PO; MULT-633 PO; SIMV20TA3 PO; TRIA1CAP4 PO; VITA1CAP PO; VITA400C60 PO
== END 2018-07-11 12:25 | disposition home or self-care (01) ==
LOC: PREOP 12:00
PROVIDERS: ATTEND Surgery
DX: Z01.818 Encounter for other preprocedural examination (principal)

== ENCOUNTER 2018-07-16 07:11 | Day surgery (SDC) | payer MEDICARE, BC ==
[~2018-07-16] VITALS: Ht 177.8 cm; Wt 80.6 kg
--- OUTSIDE RECORDS SUMMARY | 2018-07-16 07:16 | XMS REPORT | Continuity of Care Document ---
Author Organization Unknown Address Unknown Allergies Active Description Code Type Severity Reaction Onset Reported/Identified Relationship to Patient Clinical Status Yes No Allergy Information Available [id number] Drug Allergy Unknown N/A 2018 Medications There is no data. 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 Results Test Result Range Complete blood count (CBC) with automated white blood cell (WBC) differential - 06/18/18 19:50 Blood leukocytes automated count (number/volume) 5.6 10*3/uL 4.3-11.0 Blood erythrocytes automated count (number/volume) 4.54 10*6/uL 4.35-5.85 Venous blood hemoglobin measurement (mass/volume) 14.1 g/dL 13.3-17.7 Blood hematocrit (volume fraction) 40 % 40-54 Automated erythrocyte mean corpuscular volume 88 [foz_us] 80-99 Automated erythrocyte mean corpuscular hemoglobin (mass per erythrocyte) 31 pg 25-34 Automated erythrocyte mean corpuscular hemoglobin concentration measurement ( mass/volume) 35 g/dL 32-36 Automated erythrocyte distribution width ratio 13.4 % 10.0-14.5 Automated blood platelet count (count/volume) 212 10*3/uL 130-400 Automated blood platelet mean volume measurement 11.1 [foz_us] 7.4-10.4 Automated blood neutrophils/100 leukocytes 61 % 42-75 Automated blood lymphocytes/100 leukocytes 28 % 12-44 Blood monocytes/100 leukocytes 9 % 0-12 Automated blood eosinophils/100 leukocytes 2 % 0-10 Automated blood basophils/100 leukocytes 1 % 0-10 Blood neutrophils automated count (number/volume) 3.4 10*3 1.8-7.8 Blood lymphocytes automated count (number/volume) 1.5 10*3 1.0-4.0 Blood monocytes automated count (number/volume) 0.5 10*3 0.0-1.0 Automated eosinophil count 0.1 10*3/uL 0.0-0.3 Automated blood basophil count (count/volume) 0.0 10*3/uL 0.0-0.1 Comprehensive metabolic panel - 06/18/18 19:50 Serum or plasma sodium measurement (moles/volume) 138 mmol/L 135-145 Serum or plasma potassium measurement (moles/volume) 3.9 mmol/L 3.6-5.0 Serum or plasma chloride measurement (moles/volume) 105 mmol/L 98-107 Carbon dioxide 23 mmol/L 21-32 Serum or plasma anion gap determination (moles/volume) 10 mmol/L 5-14 Serum or plasma urea nitrogen measurement (mass/volume) 16 mg/dL 7-18 Serum or plasma creatinine measurement (mass/volume) 1.18 mg/dL 0.60-1.30 Serum or plasma urea nitrogen/creatinine mass ratio 14 NRG Serum or plasma creatinine measurement with calculation of estimated glomerular filtration rate > NRG Serum or plasma glucose measurement (mass/volume) 119 mg/dL 70-105 Serum or plasma calcium measurement (mass/volume) 9.8 mg/dL 8.5-10.1 Serum or plasma total bilirubin measurement (mass/volume) 0.9 mg/dL 0.1-1.0 Serum or plasma alkaline phosphatase measurement (enzymatic activity/volume) 50 U/L 40-136 Serum or plasma aspartate aminotransferase measurement (enzymatic activity/ volume) 22 U/L 5-34 Serum or plasma alanine aminotransferase measurement (enzymatic activity/volume ) 22 U/L 0-55 Serum or plasma protein measurement (mass/volume) 6.6 g/dL 6.4-8.2 Serum or plasma albumin measurement (mass/volume) 4.2 g/dL 3.2-4.5 CALCIUM CORRECTED 9.6 mg/dL 8.5-10.1 Serum or plasma amylase measurement (enzymatic activity/volume) - 06/18/18 19: 50 Serum or plasma amylase measurement (enzymatic activity/volume) 47 U /L 25-125 Lipase - 06/18/18 19:50 Lipase 27 U/L 8-78 PT panel in platelet poor plasma by coagulation assay - 06/18/18 19:50 Prothrombin time (PT) in platelet poor plasma by coagulation assay 13.2 s 12.2-14.7 INR in platelet poor plasma or blood by coagulation assay 1.0 0.8-1.4 Blood type T Indirect antibody screen panel - 06/18/18 20:45 ABO+Rh group OP NRG Transfusion band number [id number] NRG Blood group antibody screen NEGATIVE NRG Complete urinalysis with reflex to culture - 06/18/18 20:45 Urine color determination YELLOW NRG Urine clarity determination CLEAR NRG Urine pH measurement by test strip 6 5-9 Specific gravity of urine by test strip 1.015 1.016- 1.022 Urine protein assay by test strip, semi-quantitative NEGATIVE NEGATIVE Urine glucose detection by automated test strip NEGATIVE NEGATIVE Erythrocytes detection in urine sediment by light microscopy NEGATIVE NEGATIVE Urine ketones detection by automated test strip NEGATIVE NEGATIVE Urine nitrite detection by test strip NEGATIVE NEGATIVE Urine total bilirubin detection by test strip NEGATIVE NEGATIVE Urine urobilinogen measurement by automated test strip (mass/volume) NORMAL NORMAL Urine leukocyte esterase detection by dipstick NEGATIVE NEGATIVE Automated urine sediment erythrocyte count by microscopy (number/high power field) NONE NRG Automated urine sediment leukocyte count by microscopy (number/high power field ) NONE NRG Bacteria detection in urine sediment by light microscopy NEGATIVE NRG Squamous epithelial cells detection in urine sediment by light microscopy RARE NRG Crystals detection in urine sediment by light microscopy NONE NRG Casts detection in urine sediment by light microscopy NONE NRG Mucus detection in urine sediment by light microscopy NEGATIVE NRG Complete urinalysis with reflex to culture NO NRG Complete blood count (CBC) with automated white blood cell (WBC) differential - 06/19/18 02:00 Blood leukocytes automated count (number/volume) 5.1 10*3/uL 4.3-11.0 Blood erythrocytes automated count (number/volume) 4.15 10*6/uL 4.35-5.85 Venous blood hemoglobin measurement (mass/volume) 12.9 g/dL 13.3-17.7 Blood hematocrit (volume fraction) 37 % 40-54 Automated erythrocyte mean corpuscular volume 89 [foz_us] 80-99 Automated erythrocyte mean corpuscular hemoglobin (mass per erythrocyte) 31 pg 25-34 Automated erythrocyte mean corpuscular hemoglobin concentration measurement ( mass/volume) 35 g/dL 32-36 Automated erythrocyte distribution width ratio 13.4 % 10.0-14.5 Automated blood platelet count (count/volume) 189 10*3/uL 130-400 Automated blood platelet mean volume measurement 10.5 [foz_us] 7.4-10.4 Automated blood neutrophils/100 leukocytes 54 % 42-75 Automated blood lymphocytes/100 leukocytes 33 % 12-44 Blood monocytes/100 leukocytes 9 % 0-12 Automated blood eosinophils/100 leukocytes 3 % 0-10 Automated blood basophils/100 leukocytes 1 % 0-10 Blood neutrophils automated count (number/volume) 2.7 10*3 1.8-7.8 Blood lymphocytes automated count (number/volume) 1.7 10*3 1.0-4.0 Blood monocytes automated count (number/volume) 0.5 10*3 0.0-1.0 Automated eosinophil count 0.1 10*3/uL 0.0-0.3 Automated blood basophil count (count/volume) 0.0 10*3/uL 0.0-0.1 Comprehensive metabolic panel - 06/19/18 02:00 Serum or plasma sodium measurement (moles/volume) 137 mmol/L 135-145 Serum or plasma potassium measurement (moles/volume) 3.7 mmol/L 3.6-5.0 Serum or plasma chloride measurement (moles/volume) 105 mmol/L 98-107 Carbon dioxide 22 mmol/L 21-32 Serum or plasma anion gap determination (moles/volume) 10 mmol/L 5-14 Serum or plasma urea nitrogen measurement (mass/volume) 17 mg/dL 7-18 Serum or plasma creatinine measurement (mass/volume) 0.96 mg/dL 0.60-1.30 Serum or plasma urea nitrogen/creatinine mass ratio 18 NRG Serum or plasma creatinine measurement with calculation of estimated glomerular filtration rate > NRG Serum or plasma glucose measurement (mass/volume) 107 mg/dL 70-105 Serum or plasma calcium measurement (mass/volume) 9.2 mg/dL 8.5-10.1 Serum or plasma total bilirubin measurement (mass/volume) 0.9 mg/dL 0.1-1.0 Serum or plasma alkaline phosphatase measurement (enzymatic activity/volume) 43 U/L 40-136 Serum or plasma aspartate aminotransferase measurement (enzymatic activity/ volume) 18 U/L 5-34 Serum or plasma alanine aminotransferase measurement (enzymatic activity/volume ) 19 U/L 0-55 Serum or plasma protein measurement (mass/volume) 5.9 g/dL 6.4-8.2 Serum or plasma albumin measurement (mass/volume) 3.9 g/dL 3.2-4.5 CALCIUM CORRECTED 9.3 mg/dL 8.5-10.1 Automated blood complete blood count (hemogram) panel - 06/19/18 20:10 Blood leukocytes automated count (number/volume) 4.2 10*3/uL 4.3-11.0 Blood erythrocytes automated count (number/volume) 3.69 10*6/uL 4.35-5.85 Venous blood hemoglobin measurement (mass/volume) 11.5 g/dL 13.3-17.7 Blood hematocrit (volume fraction) 33 % 40-54 Automated erythrocyte mean corpuscular volume 90 [foz_us] 80-99 Automated erythrocyte mean corpuscular hemoglobin (mass per erythrocyte) 31 pg 25-34 Automated erythrocyte mean corpuscular hemoglobin concentration measurement ( mass/volume) 35 g/dL 32-36 Automated erythrocyte distribution width ratio 13.4 % 10.0-14.5 Automated blood platelet count (count/volume) 171 10*3/uL 130-400 Automated blood platelet mean volume measurement 10.0 [foz_us] 7.4-10.4 Automated blood complete blood count (hemogram) panel - 06/20/18 05:25 Blood leukocytes automated count (number/volume) 3.8 10*3/uL 4.3-11.0 Blood erythrocytes automated count (number/volume) 3.70 10*6/uL 4.35-5.85 Venous blood hemoglobin measurement (mass/volume) 11.4 g/dL 13.3-17.7 Blood hematocrit (volume fraction) 34 % 40-54 Automated erythrocyte mean corpuscular volume 91 [foz_us] 80-99 Automated erythrocyte mean corpuscular hemoglobin (mass per erythrocyte) 31 pg 25-34 Automated erythrocyte mean corpuscular hemoglobin concentration measurement ( mass/volume) 34 g/dL 32-36 Automated erythrocyte distribution width ratio 13.2 % 10.0-14.5 Automated blood platelet count (count/volume) 180 10*3/uL 130-400 Automated blood platelet mean volume measurement 11.1 [foz_us] 7.4-10.4 Encounters ACCT No. Visit Date/Time Discharge Status Pt. Type Provider Facility Loc./Unit Complaint [id number] 06/18/2018 22:38:00 06/20/2018 11:15:00 DIS Inpatient DRAGAN HO DO Via [facility] 4TH GI BLEED [id number] 07/16/2018 12:40:00 PEN Preadmit SHAGUFTA MINOR DO [facility] ENDO GI BLEED/DIVERTICULITIS
[2018-07-16] MEDS ORDERED: LACTATED RINGERS 1,000 ML IV ONE (07:18)
[2018-07-16] MEDS ORDERED: LACTATED RINGERS 1,000 ML IV STA (07:21)
[2018-07-16] MEDS ORDERED: proPOfol 200 MG/20 ML (DIPRIVAN) VIAL IV ONE (07:28)
[2018-07-16] MEDS ORDERED: MIDAZOLAM 2 MG/2 ML (VERSED) VIAL ONE (07:28)
[2018-07-16 07:35] VITALS: BP 159/109
--- NOTE | 2018-07-16 07:47 | Progress Note-Pre Operative ---
Pre-Operative Progress Note H&P Reviewed The H&P was reviewed, patient examined and no changes noted. Date Seen by Provider: July 16, 2018 Time Seen by Provider: 07:30 Date H&P Reviewed: July 16, 2018 Time H&P Reviewed: 07:30 Pre-Operative Diagnosis: lower gi bleed hx, diverticulsosis SHAGUFTA MINOR DO July 16, 2018 07:47
--- NOTE | 2018-07-16 08:08 | Progress Note-Post Operative ---
Post-Operative Progess Note Surgeon (s)/Roving Winder (s) Surgeon SHAGUFTA MINOR DO Roving Winder: na Pre-Operative Diagnosis lower gi bleed hx, diverticulsosis Post-Operative Diagnosis divericulosis, sigmoid polyp Procedure & Operative Findings Date of Procedure 07/16/18 Procedure Performed/Findings colonoscopy c hot bx polypectomy Anesthesia Type per vessel slag worker Estimated Blood Loss Estimated blood loss (mL): none Specimens/Packing Specimens Removed sigmoid colon polyp SHAGUFTA MINOR DO July 16, 2018 08:08
--- NOTE | 2018-07-16 08:10 | Discharge Inst-Simple/Standard ---
Discharge Inst-Standard Patient Instructions/Follow Up Plan of Care/Instructions/FU: 2 weeks Dianelys Activity as Tolerated: Yes Discharge Diet: Regular Diet (high fiber) SHAGUFTA MINOR DO July 16, 2018 08:10
[2018-07-16 08:20] VITALS: BP 138/87
[2018-07-16 08:50] VITALS: BP 135/85
[2018-07-16 09:20] VITALS: BP 135/85
--- NOTE | 2018-07-16 12:13 | Anesthesia-General Post-Op ---
MAC Patient Condition Mental Status/LOC: Same as Preop Cardiovascular: Satisfactory Nausea/Vomiting: Absent Respiratory: Satisfactory Pain: Controlled Complications: Absent Post Op Complications Complications None Follow Up Care/Instructions Patient Instructions None needed. Anesthesiology Discharge Order Discharge Order Patient is doing well, no complaints, stable vital signs, no apparent adverse anesthesia problems. No complications reported per nursing. JÚNIOR RODRIGUEZ CRNA July 16, 2018 12:13
--- NOTE | 2018-07-16 12:55 | OPERATIVE REPORT ---
DATE OF SERVICE: 07/16/2018 PREOPERATIVE DIAGNOSES: History of GI bleed and diverticulosis. POSTOPERATIVE DIAGNOSES: Diverticulosis and sigmoid colon polyp. PROCEDURE: Colonoscopy with hot biopsy polypectomy. SURGEON: Shagufta Ivory DO ANESTHESIA: Per HAND HOSE CUTTER. ESTIMATED BLOOD LOSS: None. COMPLICATIONS: None. INDICATION: The patient is a 67-year-old male, who was admitted for lower GI bleed and diverticulosis. The patient understands risks and benefits of procedure and wished to proceed with procedure. Consent was signed and on the chart. DESCRIPTION OF PROCEDURE: The patient was taken to the endoscopy suite, placed in left lateral recumbent position. Timeout was performed. Digital rectal exam was performed. There were no palpable polyps, masses or ulcerations. Scope was inserted in the rectum and advanced all the way to the cecum with minimal difficulty. Prep was adequate. Scope was then slowly retracted back. There were no polyps, masses or ulcerations within the cecum, ascending, transverse, descending colon. Within the sigmoid colon, a small polyp was present, which hot biopsy polypectomy was performed. Scope was continued to be slowly retracted back in the rectum where it was also retroflexed noting no other pathology. Scope was returned to its normal position, slowly withdrawn until completely removed. Throughout the majority of the colon, a moderate amount of diverticulosis was present. RECOMMENDATIONS: The patient will follow up in two weeks to discuss pathology. The patient is recommended high fiber diet due to diverticulosis. Any issues, will be seen at that time. Otherwise, need to repeat colonoscopy in five years. Job ID: [id number] DocumentID: [id number] Dictated Date: 07/16/2018 08:13:37 Quill Cleaner Date: 07/16/2018 12:54:04 Dictated By: SHAGUFTA IVORY DO
== END 2018-07-16 09:20 | disposition home or self-care (01) ==
LOC: ENDO 07:11
PROVIDERS: ATTEND Surgery
DX: K57.30 Diverticulosis of large intestine without perforation or abscess without bleeding (principal); K63.5 Polyp of colon; Z87.19 Personal history of other diseases of the digestive system; I10 Essential (primary) hypertension; J30.9 Allergic rhinitis, unspecified; Z87.891 Personal history of nicotine dependence; Z79.82 Long term (current) use of aspirin; Z79.899 Other long term (current) drug therapy

== ENCOUNTER → 2019-05-22 | Outpatient (CLI) | payer MEDICARE, BC ==
[~2019-05-22] MED LIST changes: -CETI10TA20 PO; +CETI10TA21 PO; +SIMV20TA26 PO; -SIMV20TA3 PO
[2019-05-22 09:34] LABS: ALBUMIN 4.4 GM/DL (3.2-4.5); BILIRUBIN,TOTAL 1.1 MG/DL (0.1-1.0); CALCIUM 10.1 MG/DL (8.5-10.1); CREATININE SERUM 1.27 MG/DL (0.60-1.30); POTASSIUM 3.9 MMOL/L (3.6-5.0)
== END ==
LOC: LAB 08:57
PROVIDERS: ATTEND Family Medicine
DX: I10 Essential (primary) hypertension (principal)
CPT/HCPCS: 36415; 80053; 80061

== ENCOUNTER 2020-07-03 23:38 | Observation (INO) | payer MEDICARE, BC ==
[~2020-07-03] VITALS: Ht 177 cm; Wt 80.9 kg
[~2020-07-03 23:38] MED LIST changes: +ASPI-1238 PO; -ASPI-983 PO; -CALC600T12 PO; +CALC600T91 PO; -CETI10TA21 PO; +CETI10TA49 PO; -LISI10TA2 PO; +LISI10TA25 PO
[2020-07-04] MEDS ORDERED: NS IV 1000 ML 1,000 ML IV SCH (00:45)
[2020-07-04 00:50] LABS: BASOPHILS # (AUTO) 0.1 10^3/uL (0.0-0.1); BASOPHILS % (AUTO) 1 % (0-10); EOSINOPHILS # (AUTO) 0.1 10^3/uL (0.0-0.3); EOSINOPHILS % (AUTO) 2 % (0-10); HEMATOCRIT 43 % (40-54); HEMOGLOBIN 14.6 g/dL (13.3-17.7); LYMPHOCYTES # (AUTO) 1.3 10^3/uL (1.0-4.0); LYMPHOCYTES % (AUTO) 24 % (12-44); MEAN CORPUSCULAR HEMOGLOBIN 31 pg (25-34); MEAN CORPUSCULAR HGB CONC 34 g/dL (32-36); MEAN CORPUSCULAR VOLUME 91 fL (80-99); MEAN PLATELET VOLUME 11.1 fL (9.0-12.2); MONOCYTES # (AUTO) 0.5 10^3/uL (0.0-1.0); MONOCYTES % (AUTO) 9 % (0-12); NEUTROPHILS # (AUTO) 3.6 10^3/uL (1.8-7.8); NEUTROPHILS % (AUTO) 64 % (42-75); PLATELET COUNT 200 10^3/uL (130-400); WHITE BLOOD COUNT 5.6 10^3/uL (4.3-11.0)
[2020-07-04 00:58] LABS: PROTHROMBIN TIME PATIENT 13.5 SEC (12.2-14.7)
[2020-07-04 01:06] LABS: ALBUMIN 4.5 GM/DL (3.2-4.5); BILIRUBIN,TOTAL 0.7 MG/DL (0.1-1.0); CALCIUM 9.8 MG/DL (8.5-10.1); CREATININE SERUM 1.3 MG/DL (0.60-1.30); MAGNESIUM 1.9 MG/DL (1.6-2.4); POTASSIUM 4.2 MMOL/L (3.6-5.0); TOTAL PROTEIN 7.2 GM/DL (6.4-8.2)
[2020-07-04] MEDS ORDERED: IOHEXOL 350 MG/ML 100 ML (OMNIPAQUE 350) VIAL IV ONE (02:15)
[2020-07-04] MEDS ORDERED: CATHETER FLUSH 10 ML SYR IV PRN (02:15)
[2020-07-04] MEDS ORDERED: HOLD METFORMIN - RECEIVED CONTRAST 20 ML VIAL IV SCH (02:15)
[2020-07-04] MEDS ORDERED: NS 100 ML (IVPB) BAG IV ONE (02:15)
[2020-07-04 03:33] LABS: BILIRUBIN,URINE NEGATIVE (NEGATIVE); CLARITY,URINE CLEAR; COLOR,URINE YELLOW; GLUCOSE, URINE (UA) NEGATIVE (NEGATIVE); KETONES,URINE 1+ (NEGATIVE); LEUKOCYTE ESTERASE ,URINE NEGATIVE (NEGATIVE); NITRITE,URINE NEGATIVE (NEGATIVE); PH,URINE 5.5 (5-9); PROTEIN,URINE NEGATIVE (NEGATIVE)
[2020-07-04 03:34] LABS: BACTERIA,URINE NEGATIVE /HPF; SQUAMOUS EPITHELIAL CELL,UR RARE /HPF
[2020-07-04 04:40] VITALS: BP 148/84
[2020-07-04] MEDS: NS IV 1000 ML 1,000 ML IV SCH ×4 (04:57→23:49)
[2020-07-04 06:24] LABS: HEMOGLOBIN 12.3 g/dL (13.3-17.7)
--- NOTE | 2020-07-04 07:06 | ED GI ---
General Chief Complaint: Rect Problems Stated Complaint: ACUTE LOWER GI BLEEDING;DIVERTICULAR DISEASE Nursing Triage Note: PRESENTS TO ROOM #4 ACCOMPANIED BY DAUGHTER FROM POV WITH C/O BLOOD IN STOOL. STATES SINCE INITIAL EPISODE AT 2099 HE HAS EXPERIENCED X2 MORE EPISODES. DENIES PAIN, DISCOMFORT, NAUSEA, OR VOMITING. HX DIVERTICULITIS. Sepsis Screen: No Definite Risk Source of Information: Patient History of Present Illness Date Seen by Provider: Jul 04, 2020 Time Seen by Provider: 00:26 Initial Comments PT ARRIVES VIA POV FROM HOME C/O PASSING BLOOD IN STOOLS SINCE 2099--HAS HAD 4 LARGE EPISODES OF GROSS BLOOD WITH CLOTS--WITHOUT STOOL HAD A NORMAL BM THIS MORNING AT 0530 NO ABDOMINAL PAIN OR RECTAL PAIN NO NAUSEA/VOMITING/DIARRHEA NO FEVER/SWEATS/CHILLS NO DIZZINESS OR SYNCOPE HAD SAME EXACT THING HAPPEN 06/2018 AND WAS FOUND TO HAVE DIVERTICULAR DISEASE, CAUSE OF BLEEDING HAS NOT HAD ANY PROBLEMS SINCE THEN PT TAKES 81 MG ASPIRIN, BUT IS OTHERWISE NOT ON BLOOD THINNERS PT DID EAT POPCORN 2 NIGHTS AGO PT HAS "A COUPLE OF DRINKS OF WHISKEY" EVERY DAY PT HAS BEEN VERY ACTIVE ALL DAY TODAY--PUT IN A NEW HOT WATER TANK, TILLED AND RAKED THE GARDEN AND THEN MOWED 1 ACRE LAWN NO TRAUMA HAS FELT FINE ALL DAY PCP: DR. ANDREWS Allergies and Home Medications Allergies Coded Allergies: No Known Drug Allergies (Unverified , 07/11/18) Home Medications Calcium Carbonate 600 Mg Tablet, 600 MG PO DAILY, (Reported) Last Action: Reviewed Cetirizine HCl 10 Mg Tablet, 10 MG PO DAILY PRN for ALLERGIES, (Reported) Last Action: Reviewed Cholecalciferol (Vitamin D3) 5,000 Unit Capsule, 5,000 UNIT PO DAILY, (Reported) Last Action: Reviewed Cyanocobalamin (Vitamin B-12) 5,000 Mcg Capsule, 5,000 MCG PO DAILY, (Reported) Last Action: Reviewed Fish Oil/Dha/Epa 1 Each Capsule, 1,200 MG PO DAILY, (Reported) Last Action: Reviewed L.acidoph & Paracasei,B.lactis 1 Each Capsule, 1 CAP PO DAILY, (Reported) Last Action: Reviewed Lisinopril 10 Mg Tablet, 10 MG PO DAILY, (Reported) TAKES ONE TABLET BY MOUTH DAILY Last Action: Edited Multivitamin 1 Each Tablet, 1 TAB PO DAILY, (Reported) Last Action: Reviewed Simvastatin 20 Mg Tablet, 20 MG PO HS, (Reported) Last Action: Reviewed Triamterene/Hydrochlorothiazid 1 Each Capsule, 1 CAP PO DAILY, (Reported) Last Action: Reviewed Vitamin B Complex 1 Each Capsule, 1 CAP PO DAILY, (Reported) Last Action: Reviewed Vitamin E Acetate 400 Unit Capsule, 400 UNIT PO DAILY, (Reported) Last Action: Reviewed Patient Home Medication List Home Medication List Reviewed: Yes Review of Systems Review of Systems Constitutional: no symptoms reported; No diaphoresis, No dizziness, No malaise, No weakness Respiratory: No Symptoms Reported Cardiovascular: No Symptoms Reported Gastrointestinal: See HPI; Denies Abdomen Distended, Denies Abdominal Pain, Denies Constipated, Denies Diarrhea, Denies Nausea, Denies Poor Appetite, Denies Poor Fluid Intake; Rectal Bleeding; Denies Vomiting Genitourinary: No Symptoms Reported Musculoskeletal: no symptoms reported Skin: no symptoms reported Psychiatric/Neurological: No Symptoms Reported Endocrine: No Symptoms Reported Hematologic/Lymphatic: See HPI Past [id number] Hx Past Med/Social Hx: Reviewed and Corrections made Patient Social History Alcohol Use: Regular Use Smoking Status: Former Smoker Type Used: Cigarettes, Smokeless Tobacco Former Smoker, Quit: July 11, 1972 2nd Hand Smoke Exposure: No Recent Infectious Disease Expo: No Recent Hopitalizations: Yes (06/2018-GI BLEED) Have you traveled recently?: No Alcohol Use?: Yes Immunizations Up To Date Tetanus Booster (TDap): Less than 5yrs PED Vaccines UTD: Yes Date of Pneumonia Vaccine: Dec 24, 2017 Date of Influenza Vaccine: Dec 24, 2017 Seasonal Allergies Seasonal Allergies: Yes Past Medical History Surgeries: Yes (RIGHT THUMB-PIN PLACED AND REMOVED, LEFT KNEE SCOPE; COLONOSCOPY) Appendectomy, Orthopedic Respiratory: No Currently Using CPAP: No Currently Using BIPAP: No Cardiac: Yes High Cholesterol, Hypertension Neurological: No Sexually Transmitted Disease: No HIV/AIDS: No Genitourinary: No Gastrointestinal: Yes (LOWER GI BLEED DUE TO DIVERTICULAR DISEASE) Gastrointestinal Bleed, Diverticulosis Musculoskeletal: No Endocrine: No HEENT: No (GLASSES) Loss of Vision: Bilateral Hearing Impairment: Denies Cancer: No Psychosocial: No Integumentary: No Blood Disorders: No Adverse Reaction/Blood Tranf: No (N/A) Family Medical History No Pertinent Family Hx SOCIAL HISTORY:- -ETOH--DRINKS "A COUPLE" OF WHISKEY DRINKS EVERY DAY -DRUGS-DENIES USE -FORMER SMOKER/SMOKELESS TOBACCO USER Physical Exam Vital Signs Vital Signs - First Documented 07/04/20 00:20 Temp 36.6 Pulse 85 Resp 18 B/P (MAP) 138/88 (105) Pulse Ox 96 O2 Delivery Room Air Capillary Refill : Less Than 3 Seconds Height/Weight/BMI Height: 5'10.00" Weight: 177lbs. 11.2oz. 80.192904il; 25.82 BMI Method:Stated General Appearance: WD/WN, no apparent distress, other (SMILING, TALKATIVE, PLEASANT, DOES NOT APPEAR TO BE IN ANY DISCOMFORT OR DISTRESS) HEENT: No pale conjunctivae (R), No pale conjunctivae (L) Neck: normal inspection Respiratory: normal breath sounds, no respiratory distress, no accessory muscle use Cardiovascular: regular rate, rhythm, no murmur Gastrointestinal: normal bowel sounds, non tender, soft Back: no CVA tenderness Neurologic/Psychiatric: purchasing assistant II-XII nml as tested, no motor/sensory deficits, alert, normal mood/affect, oriented x 3 Skin: normal color, warm/dry; No ecchymosis Progress/Results/Core Measures Results/Orders Lab Results Laboratory Tests Test 07/04/20 00:39 07/04/20 03:17 Range/Units White Blood Count 5.6 4.3-11.0 10^3/uL Red Blood Count 4.70 4.30-5.52 10^6/uL Hemoglobin 14.6 13.3-17.7 g/dL Hematocrit 43 40-54 % Mean Corpuscular Volume 91 80-99 fL Mean Corpuscular Hemoglobin 31 25-34 pg Mean Corpuscular Hemoglobin Concent 34 32-36 g/dL Red Cell Distribution Width 13.1 10.0-14.5 % Platelet Count 200 130-400 10^3/uL Mean Platelet Volume 11.1 9.0-12.2 fL Immature Granulocyte % (Auto) 0 % Neutrophils (%) (Auto) 64 42-75 % Lymphocytes (%) (Auto) 24 12-44 % Monocytes (%) (Auto) 9 0-12 % Eosinophils (%) (Auto) 2 0-10 % Basophils (%) (Auto) 1 0-10 % Neutrophils # (Auto) 3.6 1.8-7.8 10^3/uL Lymphocytes # (Auto) 1.3 1.0-4.0 10^3/uL Monocytes # (Auto) 0.5 0.0-1.0 10^3/uL Eosinophils # (Auto) 0.1 0.0-0.3 10^3/uL Basophils # (Auto) 0.1 0.0-0.1 10^3/uL Immature Granulocyte # (Auto) 0.0 0.0-0.1 10^3/uL Prothrombin Time 13.5 12.2-14.7 SEC INR Comment 1.0 0.8-1.4 Activated Partial Thromboplast Time 38 H 24-35 SEC Sodium Level 139 135-145 MMOL/L Potassium Level 4.2 3.6-5.0 MMOL/L Chloride Level 103 98-107 MMOL/L Carbon Dioxide Level 24 21-32 MMOL/L Anion Gap 12 5-14 MMOL/L Blood Urea Nitrogen 23 H 7-18 MG/DL Creatinine 1.30 0.60-1.30 MG/DL Estimat Glomerular Filtration Rate 55 BUN/Creatinine Ratio 18 Glucose Level 114 H 70-105 MG/DL Calcium Level 9.8 8.5-10.1 MG/DL Corrected Calcium 9.4 8.5-10.1 MG/DL Magnesium Level 1.9 1.6-2.4 MG/DL Total Bilirubin 0.7 0.1-1.0 MG/DL Aspartate Amino Transf (AST/SGOT) 23 5-34 U/L Alanine Aminotransferase (ALT/SGPT) 21 0-55 U/L Alkaline Phosphatase 51 40-136 U/L Total Protein 7.2 6.4-8.2 GM/DL Albumin 4.5 3.2-4.5 GM/DL Amylase Level 63 25-125 U/L Lipase 36 8-78 U/L Urine Color YELLOW Urine Clarity CLEAR Urine pH 5.5 5-9 Urine Specific Ronan 1.010 L 1.016-1.022 Urine Protein NEGATIVE NEGATIVE Urine Glucose (UA) NEGATIVE NEGATIVE Urine Ketones 1+ H NEGATIVE Urine Nitrite NEGATIVE NEGATIVE Urine Bilirubin NEGATIVE NEGATIVE Urine Urobilinogen 0.2 < = 1.0 MG/DL Urine Leukocyte Esterase NEGATIVE NEGATIVE Urine RBC (Auto) NEGATIVE NEGATIVE Urine RBC NONE /HPF Urine WBC NONE /HPF Urine Squamous Epithelial Cells RARE /HPF Urine Crystals NONE /LPF Urine Bacteria NEGATIVE /HPF Urine Casts NONE /LPF Urine Mucus NEGATIVE /LPF Urine Culture Indicated NO My Orders Orders - ERIBERTO ORELLANA DO Ed Iv/Invasive Line Start (07/04/20 00:44) Monitor-Rhythm Ecg Trace Only (07/04/20 00:44) Ct Abdomen/Pelvis W (07/04/20 00:44) Amylase (07/04/20 00:44) Cbc With Automated Diff (07/04/20 00:44) Comprehensive Metabolic Panel (07/04/20 00:44) Lipase (07/04/20 00:44) Magnesium (07/04/20 00:44) Protime With Inr (07/04/20:44) Partial Thromboplastin Time (07/04/20 00:44) Ua Culture If Indicated (07/04/20 00:44) Type And Screen (07/04/20 00:44) Acute Abd Series (07/04/20 00:44) Ed Iv/Invasive Line Start (07/04/20 00:44) Ed Iv/Invasive Line Start (07/04/20 00:44) Ns Iv 1000 Ml (Sodium Chloride 0.9%) (07/04/20 00:45) Fecal Occult Bedside (07/04/20 01:48) Iohexol Injection (Omnipaque 350 Mg/Ml 1 (07/04/20 02:15) Received Contrast (Hold Metformin- Contr (07/04/20 02:15) Sodium Chloride Flush (Catheter Flush Sy (07/04/20 02:15) Ns (Ivpb) (Sodium Chloride 0.9% Ivpb Bag (07/04/20 02:15) Medications Given in ED Current Medications Medications Dose Ordered Sig/Nigel Route Start Time Stop Time Status Last Admin Dose Admin Iohexol 100 ml ONCE ONCE IV 07/04/20 02:15 07/04/20 02:16 DC 07/04/20 02:11 100 ML Sodium Chloride 10 ml NEEDED PRN IV 07/04/20 02:15 07/04/20 02:11 10 ML Sodium Chloride 100 ml ONCE ONCE IV 07/04/20 02:15 07/04/20 02:16 DC 07/04/20 02:11 80 ML Vital Signs/I&O 07/04/20 00:20 Temp 36.6 Pulse 85 Resp 18 B/P (MAP) 138/88 (105) Pulse Ox 96 O2 Delivery Room Air Blood Pressure Mean: 105 Fecal Occult: Positive Progress Progress Note : Progress Note PT HAD ONE EPISODE OF PASSING A LARGE AMOUNT OF GROSS BLOOD WITH CLOTS, WHILE IN ER--NO STOOL IN IT, ONLY BLOOD UNEVENTFUL ER STAY Diagnostic Imaging Comments ABDOMEN XRAYS--NO ACUTE PROCESS, PENDING RADIOLOGIST REVIEW CT ABDOMEN/PELVIS--DIVERTICULAR DISEASE OF COLON. NO ACUTE INFLAMMATION, NO OBVIOUS ACUTE GI BLEEDING, PER [facility] VIA FAX AT 0216 Reviewed: Reviewed by Dc Departure Communication (Admissions) 0249--SPOKE WITH DR. AMIN, SURGEON LAB[employer]ER [employer]SEM[employer].ACCEPTS PT FOR ADMIT. NO ADDITIONAL ORDERS AT THIS TIME Impression Primary Impression: Acute lower GI bleeding Additional Impression: Diverticulosis Disposition: ADMITTED INPATIENT Condition: Stable Admissions Decision to Admit Reason: Admit from ER (General) Decision to Admit/Date: Jul 04, 2020 Time/Decision to Admit Time: 02:50 Departure-Patient Inst. Referrals: DARSHAN ANDREWS MD (PCP) Primary Care Physician ERIBERTO ORELLANA DO Jul 04, 2020 07:06
--- NOTE | 2020-07-04 07:41 | History & Physical-Surgical ---
HAI GO MED STUDENT 07/04/20 0740: History of Present Illness History of Present Illness Reason for visit/HPI Dony Cohen is a 69 yo M presenting to the ED admitted for observation of bright red blood with bowel movements. The patient states this episode is similar to one occurring 2 years ago, following which he was diagnosed with diverticulosis on colonoscopy. The patient complains of passing bowel movements with a large amount of bright red blood and clots at 9pm last night, stating he passed several more bowel movements, 5 total, with the last at 1 am. He states his bowel movements have sequentially had less blood. Dony also notes increased stress at home due to his fighting cancer again. The patient denies recent fever, chills, weight change, abdominal pain, constipation, diarrhea, nausea, vomiting, congestion, sore throat, chest pain, and SOB. He states he feels ready to eat and go home. Date of Admission Jul 04, 2020 at 03:53 I consulted on this patient on 07/04/20 07:35 Attending Physician Nithya Cruz MD Admitting Physician Nithya Cruz MD Consult Allergies and Home Medications Allergies Coded Allergies: No Known Drug Allergies (Unverified , 07/11/18) Home Medications Aspirin 81 Mg Tablet.dr, 81 MG PO DAILY, (Reported) Last Action: Reviewed Calcium Carbonate 600 Mg Tablet, 600 MG PO DAILY, (Reported) Last Action: Reviewed Cetirizine HCl 10 Mg Tablet, 10 MG PO DAILY PRN for ALLERGIES, (Reported) Last Action: Reviewed Cholecalciferol (Vitamin D3) 125 Mcg Tablet, 125 MCG PO DAILY, (Reported) Last Action: Reviewed Cyanocobalamin (Vitamin B-12) 5,000 Mcg Capsule, 5,000 MCG PO DAILY, (Reported) Last Action: Reviewed Fish Oil/Dha/Epa 1 Each Capsule, 1,200 MG PO DAILY, (Reported) Last Action: Reviewed L.acidoph & Paracasei,B.lactis 1 Each Capsule, 1 CAP PO DAILY, (Reported) Last Action: Reviewed Lisinopril 10 Mg Tablet, 10 MG PO DAILY, (Reported) Last Action: Reviewed Multivitamin 1 Each Tablet, 1 TAB PO DAILY, (Reported) Last Action: Reviewed Naproxen Sodium 220 Mg Tablet, 220 MG PO Q8H PRN for PAIN-MILD (1-4), (Reported) Last Action: Reviewed Simvastatin 20 Mg Tablet, 20 MG PO HS, (Reported) Last Action: Reviewed Triamterene/Hydrochlorothiazid 1 Each Capsule, 1 CAP PO DAILY, (Reported) Last Action: Reviewed Vitamin B Complex 1 Each Capsule, 1 CAP PO DAILY, (Reported) Last Action: Reviewed Vitamin E Acetate 400 Unit Capsule, 400 UNIT PO DAILY, (Reported) Last Action: Reviewed Past Evldhks-Cdxlwz-Bgkogh Hx Patient Social History Smoking Status: Former Smoker (quit at 40 y.o.) Former Smoker, Quit: July 11, 1972 Type Used: Cigarettes, Smokeless Tobacco 2nd Hand Smoke Exposure: No Recent Hopitalizations: Yes (06/2018-GI BLEED) Alcohol Use?: Yes (2 to 3 whiskey drinks per day) Have you traveled recently?: No Immunizations Up To Date Tetanus Booster (TDap): Less than 5yrs PED Vaccines UTD: Yes Date of Pneumonia Vaccine: Dec 24, 2017 Date of Influenza Vaccine: Dec 24, 2017 Seasonal Allergies Seasonal Allergies: Yes Surgeries History of Surgeries: Yes (RIGHT THUMB-PIN PLACED AND REMOVED, LEFT KNEE SCOPE; COLONOSCOPY ) Surgeries: Appendectomy, Orthopedic Respiratory History of Respiratory Disorde: No Cardiovascular History of Cardiac Disorders: Yes Cardiac Disorders: High Cholesterol, Hypertension Neurological History of Neurological Disord: No Reproductive System Sexually Transmitted Disease: No HIV/AIDS: No Genitourinary History of Genitourinary Disor: No Gastrointestinal History of Gastrointestinal Di: Yes (LOWER GI BLEED DUE TO DIVERTICULAR DISEASE) Gastrointestinal Disorders: Gastrointestinal Bleed, Diverticulosis Musculoskeletal History of Musculoskeletal Dis: No Endocrine History of Endocrine Disorders: No HEENT History of HEENT Disorders: No (GLASSES) Loss of Vision: Bilateral Hearing Impairment: Denies Cancer History of Cancer: No Psychosocial History of Psychiatric Problem: No Integumentary History of Skin or Integumenta: No Blood Transfusions History of Blood Disorders: No Adverse Reaction to a Blood Tr: No (N/A) Family Medical History Significant Family History: No Pertinent Family Hx Review of Systems Constitutional: No chills, No fever EENTM: No blurred vision, No vision loss Respiratory: No cough, No short of breath Cardiovascular: No chest pain, No palpitations Gastrointestinal: No abdominal pain, No constipation, No diarrhea, No nausea, No vomiting; other (bright red blood with stooling) Genitourinary: No dysuria, No frequency, No pain Musculoskeletal: No muscle pain, No muscle stiffness; other Skin: No pruritus, No rash Psychiatric/Neurological: Denies Numbness, Denies Paresthesia, Denies Weakness All Other Systems Reviewed Negative Unless Noted: Yes Physical Exam Vital Signs Vital Signs - First Documented 07/04/20 00:20 Temp 36.6 Pulse 85 Resp 18 B/P (MAP) 138/88 (105) Pulse Ox 96 O2 Delivery Room Air Capillary Refill : Less Than 3 Seconds Height, Weight, BMI Height: 5'10.00" Weight: 177lbs. 11.2oz. [id number]; 25.82 BMI Method:Stated General Appearance: No Apparent Distress, WD/WN HEENT: PERRL/EOMI Neck: Normal Inspection Respiratory: Chest Non Tender, Lungs Clear, Normal Breath Sounds, No Accessory Muscle Use, No Respiratory Distress Cardiovascular: Regular Rate, Rhythm, No Edema, No Gallop, No JVD Gastrointestinal: Normal Bowel Sounds, No Pulsatile Mass, Non Tender, Soft Extremity: Normal Inspection Neurologic/Psychiatric: Alert, Oriented x3, Normal Mood/Affect Skin: Normal Color, Warm/Dry Lymphatic: No Adenopathy (cervical) Data Review Labs Laboratory Tests 07/04/20 00:39: White Blood Count 5.6, Red Blood Count 4.70, Hemoglobin 14.6, Hematocrit 43, Mean Corpuscular Volume 91, Mean Corpuscular Hemoglobin 31, Mean Corpuscular Hemoglobin Concent 34, Red Cell Distribution Width 13.1, Platelet Count 200, Mean Platelet Volume 11.1, Immature Granulocyte % (Auto) 0, Neutrophils (%) (Auto) 64, Lymphocytes (%) (Auto) 24, Monocytes (%) (Auto) 9, Eosinophils (%) (Auto) 2, Basophils (%) (Auto) 1, Neutrophils # (Auto) 3.6, Lymphocytes # (Auto) 1.3, Monocytes # (Auto) 0.5, Eosinophils # (Auto) 0.1, Basophils # (Auto) 0.1, Immature Granulocyte # (Auto) 0.0, Prothrombin Time 13.5, INR Comment 1.0, Activated Partial Thromboplast Time 38H, Sodium Level 139, Potassium Level 4.2, Chloride Level 103, Carbon Dioxide Level 24, Anion Gap 12, Blood Urea Nitrogen 23H, Creatinine 1.30, Estimat Glomerular Filtration Rate 55, BUN/Creatinine Ratio 18, Glucose Level 114H, Calcium Level 9.8, Corrected Calcium 9.4, Magnesium Level 1.9, Total Bilirubin 0.7, Aspartate Amino Transf (AST/SGOT) 23, Alanine Aminotransferase (ALT/SGPT) 21, Alkaline Phosphatase 51, Total Protein 7.2, Albumin 4.5, Amylase Level 63, Lipase 36 07/04/20 03:17: Urine Color YELLOW, Urine Clarity CLEAR, Urine pH 5.5, Urine Specific Devers 1.010L, Urine Protein NEGATIVE, Urine Glucose (UA) NEGATIVE, Urine Ketones 1+H, Urine Nitrite NEGATIVE, Urine Bilirubin NEGATIVE, Urine Urobilinogen 0.2, Urine Leukocyte Esterase NEGATIVE, Urine RBC (Auto) NEGATIVE, Urine RBC NONE, Urine WBC NONE, Urine Squamous Epithelial Cells RARE, Urine Crystals NONE, Urine Bacteria NEGATIVE, Urine Casts NONE, Urine Mucus NEGATIVE, Urine Culture Indicated NO 07/04/20 05:23: Hemoglobin 12.3L, Hematocrit 36L Assessment/Plan Assessment/Plan Admission Diagonsis bright red blood with stools hx diverticular disease Assessment/Plan bright red blood with stools hx diverticular disease -patient's episodes have resolved. -VS stable including blood pressure - hemoglobin slightly low but stable, especially with resolution of bleeding -creatinine not significantly different from episode 2 years ago, so his baseline is likely around 1.3. Other lab values are not concerning. -he currently has no complaints -safe for discharge home -do not think he benefits from continued hospital stay. Will have him eat and drink to confirm he can intake fluids PO. Last scope 07/16/18 following a similar episode showed diverticulosis and 1x polyp removed -followup colonoscopy in 2 weeks. -education on high fiber diet, return precautions including recurrence of significant blood loss or fainting. SUDHIR AMIN DO 07/05/20 1240: History of Present Illness History of Present Illness Reason for visit/HPI Surgery asked to admit pt secondary to rectal bleed. Pt had similar episode 2 years ago; thought to be due to diverticulosis. When I saw him he stated he had had one brownish/reddish BM, but nothing when he wiped (had been blood when he wiped after first few BM's) Time Seen by a Provider: 17:34 Allergies and Home Medications Allergies Coded Allergies: No Known Drug Allergies (Unverified , 07/11/18) Home Medications Aspirin 81 Mg Tablet.dr, 81 MG PO DAILY, (Reported) Last Action: Reviewed Calcium Carbonate 600 Mg Tablet, 600 MG PO DAILY, (Reported) Last Action: Reviewed Cetirizine HCl 10 Mg Tablet, 10 MG PO DAILY PRN for ALLERGIES, (Reported) Last Action: Reviewed Cholecalciferol (Vitamin D3) 125 Mcg Tablet, 125 MCG PO DAILY, (Reported) Last Action: Reviewed Cyanocobalamin (Vitamin B-12) 5,000 Mcg Capsule, 5,000 MCG PO DAILY, (Reported) Last Action: Reviewed Fish Oil/Dha/Epa 1 Each Capsule, 1,200 MG PO DAILY, (Reported) Last Action: Reviewed L.acidoph & Paracasei,B.lactis 1 Each Capsule, 1 CAP PO DAILY, (Reported) Last Action: Reviewed Lisinopril 10 Mg Tablet, 10 MG PO DAILY, (Reported) Last Action: Reviewed Multivitamin 1 Each Tablet, 1 TAB PO DAILY, (Reported) Last Action: Reviewed Naproxen Sodium 220 Mg Tablet, 220 MG PO Q8H PRN for PAIN-MILD (1-4), (Reported) Last Action: Reviewed Simvastatin 20 Mg Tablet, 20 MG PO HS, (Reported) Last Action: Reviewed Triamterene/Hydrochlorothiazid 1 Each Capsule, 1 CAP PO DAILY, (Reported) Last Action: Reviewed Vitamin B Complex 1 Each Capsule, 1 CAP PO DAILY, (Reported) Last Action: Reviewed Vitamin E Acetate 400 Unit Capsule, 400 UNIT PO DAILY, (Reported) Last Action: Reviewed Patient Home Medication List Home Medication List Reviewed: Yes Past Geoopgg-Nrgtub-Cztpor Hx Patient Social History Smoking Status: Former Smoker (quit at 40 y.o.) Alcohol Use?: Yes (2 to 3 whiskey drinks per day) Surgeries History of Surgeries: Yes (RIGHT THUMB-PIN PLACED AND REMOVED, LEFT KNEE SCOPE; COLONOSCOPY ) Respiratory History of Respiratory Disorde: No Cardiovascular History of Cardiac Disorders: Yes Cardiac Disorders: Hypertension Neurological History of Neurological Disord: No Genitourinary History of Genitourinary Disor: No Gastrointestinal History of Gastrointestinal Di: Yes Gastrointestinal Disorders: Gastrointestinal Bleed Musculoskeletal History of Musculoskeletal Dis: No Endocrine History of Endocrine Disorders: Yes Endocrine Disorders: Hypothyroidsim HEENT History of HEENT Disorders: No Loss of Vision: Denies Hearing Impairment: Hard of Hearing Cancer History of Cancer: No Psychosocial History of Psychiatric Problem: No Integumentary History of Skin or Integumenta: No Family Medical History Significant Family History: Cancer (Daughter had Breast CA), Diabetes (father), Hypertension (HTN) Review of Systems Constitutional: No chills, No fever EENTM: No blurred vision, No vision loss Respiratory: No cough, No short of breath Cardiovascular: No chest pain, No palpitations Gastrointestinal: No abdominal pain, No constipation, No diarrhea, No nausea, No vomiting; other (bright red blood with stooling) Genitourinary: No dysuria, No frequency, No pain Musculoskeletal: No muscle pain, No muscle stiffness; other Skin: No pruritus, No rash Psychiatric/Neurological: Denies Numbness, Denies Paresthesia, Denies Weakness pt denies hx of bleeding or bruising disorder Physical Exam General Appearance: No Apparent Distress, WD/WN Eyes: Bilateral Eye PERRL, Bilateral Eye EOMI HEENT: Pharynx Normal, Moist Mucous Membranes Neck: Normal Inspection Respiratory: Chest Non Tender, Lungs Clear, Normal Breath Sounds, No Accessory Muscle Use, No Respiratory Distress Cardiovascular: Regular Rate, Rhythm, No Murmur Gastrointestinal: Normal Bowel Sounds, No Pulsatile Mass, Non Tender Back: No CVA Tenderness, No Vertebral Tenderness Extremity: No Calf Tenderness Neurologic/Psychiatric: Alert, Oriented x3, Normal Mood/Affect, salesperson household appliances II-XII Norm as Tested Skin: Normal Color, Warm/Dry Lymphatic: No Adenopathy (cervical, axillary or groin) Assessment/Plan Assessment/Plan Admission Diagonsis bright red blood with stools hx diverticular disease Admission Status: Observation Assessment/Plan bright red blood with stools - I spoke to him about at least staying over night to make sure his bleeding has stopped/slowed and Hg does not drop significantly. He agreed to this plan hx diverticular disease -patient's episodes have resolved. -VS stable including blood pressure - hemoglobin slightly low but stable, unsure about resolution of bleeding....hasn't had non-bloody BM yet -creatinine not significantly different from episode 2 years ago, so his baseline is likely around 1.3. Other lab values are not concerning. -he currently has no complaints Last scope 07/16/18 following a similar episode showed diverticulosis and 1x polyp removed -followup colonoscopy per Dr. Ivory -education on high fiber diet, return precautions including recurrence of significant blood loss or fainting. Supervisory-Addendum Brief Verification & Attestation Participated in pt care: history, MDM, physical Personally performed: exam, history, MDM Care discussed with: Medical Student Procedures: n/a Verification and Attestation of Medical Student E/M Service A medical student performed and documented this service. I then reviewed and verified all information documented by the medical student and made modifications to such information, when appropriate. I personally performed a physical exam, medical decision making and then discussed any differences between the notes and made revisions as necessary to create one note. Sudhir Amin , 07/05/20 , 12:44 HAI GO MED STUDENT Jul 04, 2020 07:40 SUDHIR AMIN DO Jul 05, 2020 12:40
[2020-07-04 07:50] VITALS: BP 123/82
--- NOTE | 2020-07-04 08:06 | Diagnostic Imaging Report ---
INDICATION: Abdominal pain COMPARISON: Imaging from the same date. TECHNIQUE: 4 radiographs of the chest and abdomen dated 07/04/2020. FINDINGS: The cardiac silhouette is within normal limits in size. No significant pulmonary vascular congestion. Eventration versus elevation of the right hemidiaphragm. The lungs are clear. No pleural effusion. No pneumothorax. No acute osseous abnormality within the chest. 2 mm hyperdensity is present overlying the right mid abdomen, unchanged since June 2018. Gas and stool is noted throughout the colon, including extending into the pelvis. No dilated loops of small bowel. No differential air-fluid levels. No free air. No suspicious calcifications overlying the renal shadows. Degenerative changes within the osseous structures without acute osseous abnormality. IMPRESSION: No acute abnormality. 2 mm radiopaque density overlying the right mid abdomen, unchanged since 2018. This appears to be within the skin surface and underlying subcutaneous tissues. Dictated by: Dictated on workstation # [id number]
--- NOTE | 2020-07-04 08:21 | Diagnostic Imaging Report ---
PROCEDURE: CT abdomen and pelvis with contrast. TECHNIQUE: Multiple contiguous axial images were obtained through the abdomen and pelvis after administration of intravenous contrast. Auto Exposure Controls were utilized during the CT exam to meet ALARA standards for radiation dose reduction. All CT scans use one or more of the following dose optimizing techniques: automated exposure control, MA and/or KvP adjustment based on patient size and exam type or iterative reconstruction. INDICATION: Rectal bleeding. Bloody stool x4. COMPARISON: 06/18/2018 FINDINGS: The lung bases are clear. The heart is normal in size. There is no pericardial effusion. The liver demonstrates no focal lesions. The spleen appears normal. The pancreas is mildly atrophic but otherwise appears normal. The adrenal glands are unremarkable. The kidneys appear normal. The bowel loops are nondistended without obstruction. The appendix is not seen and there are no secondary findings of appendicitis. There is diverticulosis of the descending and sigmoid colon without diverticulitis. No areas of contrast pooling are identified. No free fluid or free air is seen. There is mild calcific atherosclerosis. Degenerative changes are seen throughout the spine. IMPRESSION: 1. Colonic diverticulosis without diverticulitis. Dictated by: Dictated on workstation # [id number]
[2020-07-04 11:40] VITALS: BP 121/72
[2020-07-04 15:27] VITALS: BP_SYST 124; BP_SYST 150; BP_DIAS 72; BP_DIAS 87
[2020-07-04 19:00] VITALS: BP 126/72
[2020-07-04 23:49] VITALS: BP 106/62
[2020-07-05] MEDS: NS IV 1000 ML 1,000 ML IV SCH (02:24)
[2020-07-05 04:46] VITALS: BP 124/80
[2020-07-05 05:03] LABS: BASOPHILS # (AUTO) 0.1 10^3/uL (0.0-0.1); BASOPHILS % (AUTO) 1 % (0-10); EOSINOPHILS # (AUTO) 0.1 10^3/uL (0.0-0.3); EOSINOPHILS % (AUTO) 2 % (0-10); HEMATOCRIT 34 % (40-54); HEMOGLOBIN 11.4 g/dL (13.3-17.7); LYMPHOCYTES # (AUTO) 1.2 10^3/uL (1.0-4.0); LYMPHOCYTES % (AUTO) 26 % (12-44); MEAN CORPUSCULAR HEMOGLOBIN 31 pg (25-34); MEAN CORPUSCULAR HGB CONC 33 g/dL (32-36); MEAN CORPUSCULAR VOLUME 93 fL (80-99); MEAN PLATELET VOLUME 11.7 fL (9.0-12.2); MONOCYTES # (AUTO) 0.5 10^3/uL (0.0-1.0); MONOCYTES % (AUTO) 11 % (0-12); NEUTROPHILS # (AUTO) 2.7 10^3/uL (1.8-7.8); NEUTROPHILS % (AUTO) 59 % (42-75); PLATELET COUNT 142 10^3/uL (130-400); WHITE BLOOD COUNT 4.5 10^3/uL (4.3-11.0)
[2020-07-05 05:24] LABS: ALANINE AMINOTRANSFERASE 13 U/L (0-55); ALBUMIN 3.4 GM/DL (3.2-4.5); ALKALINE PHOSPHATASE 36 U/L (40-136); BILIRUBIN,TOTAL 0.6 MG/DL (0.1-1.0); BUN/CREATININE RATIO 15; CALCIUM 8.3 MG/DL (8.5-10.1); CARBON DIOXIDE 22 MMOL/L (21-32); CHLORIDE 108 MMOL/L (98-107); CREATININE SERUM 0.99 MG/DL (0.60-1.30); GFR ESTIMATED > 60; GLUCOSE 97 MG/DL (70-105); POTASSIUM 3.9 MMOL/L (3.6-5.0); SODIUM 141 MMOL/L (135-145); TOTAL PROTEIN 5.3 GM/DL (6.4-8.2)
[2020-07-05 08:00] VITALS: BP 126/75
--- NOTE | 2020-07-05 08:52 | Progress Note - Surgery ---
HAI GO MED STUDENT 07/05/20 0852: Subjective Date Seen by a Provider: Jul 05, 2020 Time Seen by a Provider: 06:45 Subjective/Events-last exam Dony states he has been passing gas but has not passed stool since being seen yesterday. He denies rectal bleeding, abdominal pain, nausea, vomiting, fever, or chills. Objective Exam Vital Signs Date Time Temp Pulse Resp B/P (MAP) Pulse Ox O2 Delivery O2 Flow Rate FiO2 07/05/20 08:00 Room Air 07/05/20 08:00 37.0 71 16 126/75 (92) 95 Room Air 07/05/20 04:46 36.8 63 16 124/80 (95) 96 Room Air 07/04/20 23:49 36.6 66 16 106/62 (77) 94 Room Air 07/04/20 19:35 Room Air 07/04/20 19:00 37.0 62 18 126/72 (90) 95 Room Air 07/04/20 15:27 36.5 68 18 124/72 (89) 98 Room Air 07/04/20 12:33 57 07/04/20 11:40 36.1 59 20 121/72 (88) 97 Room Air I & O 07/05/20 07:00 Intake Total 845 ml Balance 845 ml Capillary Refill : Less Than 3 Seconds General Appearance: No Apparent Distress, WD/WN HEENT: PERRL/EOMI Neck: Normal Inspection Respiratory: Chest Non Tender, Lungs Clear, Normal Breath Sounds, No Accessory Muscle Use, No Respiratory Distress Cardiovascular: Regular Rate, Rhythm, No Edema, No Gallop, No JVD Gastrointestinal: normal bowel sounds, non tender, soft, no organomegaly Extremity: Normal Inspection, No Pedal Edema Neurologic/Psychiatric: Alert, Oriented x3, Normal Mood/Affect Skin: Normal Color, Warm/Dry Lymphatic: No Adenopathy (cervical) Results Lab Laboratory Tests 07/05/20 04:25: White Blood Count 4.5, Red Blood Count 3.66L, Hemoglobin 11.4L, Hematocrit 34L, Mean Corpuscular Volume 93, Mean Corpuscular Hemoglobin 31, Mean Corpuscular Hemoglobin Concent 33, Red Cell Distribution Width 13.4, Platelet Count 142, Mean Platelet Volume 11.7, Immature Granulocyte % (Auto) 0, Neutrophils (%) (Auto) 59, Lymphocytes (%) (Auto) 26, Monocytes (%) (Auto) 11, Eosinophils (%) (Auto) 2, Basophils (%) (Auto) 1, Neutrophils # (Auto) 2.7, Lymphocytes # (Auto) 1.2, Monocytes # (Auto) 0.5, Eosinophils # (Auto) 0.1, Basophils # (Auto) 0.1, Immature Granulocyte # (Auto) 0.0, Sodium Level 141, Potassium Level 3.9, Chloride Level 108H, Carbon Dioxide Level 22, Anion Gap 11, Blood Urea Nitrogen 15, Creatinine 0.99, Estimat Glomerular Filtration Rate > 60, BUN/Creatinine Ratio 15, Glucose Level 97, Calcium Level 8.3L, Corrected Calcium 8.8, Total Bilirubin 0.6, Aspartate Amino Transf (AST/SGOT) 15, Alanine Aminotransferase (ALT/SGPT) 13, Alkaline Phosphatase 36L, Total Protein 5.3L, Albumin 3.4 Assessment/Plan Assessment/Plan Assessment/Plan bright red blood with stools hx diverticular disease -patient states his last stooling was reddish colored, occurring at about 1 or 2 am on 07/04. Has not passed stool since, but has passed gas. -VS stable including blood pressure -repeat hemoglobin 11.3 from 12.3 yesterday. -keep regular diet until has a bm, assess for blood TORRISUNILSUDHIR B DO 07/05/20 1456: Subjective Time Seen by a Provider: 13:31 Subjective/Events-last exam Pt seen and examined, stated he had a BM around 7:30 with no blood. He was eating lunch when I saw him with no complaints. Review of Systems General: No Chills, No Night Sweats Pulmonary: No Dyspnea, No Cough Cardiovascular: No: Chest Pain, Palpitations Gastrointestinal: No: Nausea, Vomiting, Abdominal Pain Objective Exam General Appearance: No Apparent Distress, WD/WN HEENT: PERRL/EOMI Respiratory: Chest Non Tender, Lungs Clear, Normal Breath Sounds, No Accessory Muscle Use, No Respiratory Distress Cardiovascular: Regular Rate, Rhythm, No Murmur Gastrointestinal: normal bowel sounds, non tender, soft, no organomegaly Neurologic/Psychiatric: Alert, Oriented x3 Assessment/Plan Assessment/Plan Assessment/Plan Bright red blood with stools - has stopped Hx diverticular disease -VS stable including blood pressure -repeat hemoglobin 11.3 from 12.3 yesterday. -will send pt home and told to follow up with Dr. Ivory, obviously come back in for hematochezia starts up again Supervisory-Addendum Brief Verification & Attestation Participated in pt care: history, MDM, physical Personally performed: exam, history, MDM Care discussed with: Medical Student Procedures: n/a Verification and Attestation of Medical Student E/M Service A medical student performed and documented this service. I then reviewed and verified all information documented by the medical student and made modifications to such information, when appropriate. I personally performed a physical exam, medical decision making and then discussed any differences between the notes and made revisions as necessary to create one note. Sudhir Amin , 07/05/20 , 14:56 HAI [employer] STUDENT Jul 05, 2020 08:52 SUDHIR AMIN DO Jul 05, 2020 14:56
[2020-07-05] MEDS ORDERED: ASPI-1238 PO (10:11)
[2020-07-05] MEDS ORDERED: CALC-250 PO (10:11)
[2020-07-05] MEDS ORDERED: NAPR220T66 PO (10:11)
[2020-07-05 11:56] VITALS: BP 148/85
--- NOTE | 2020-07-05 14:49 | Discharge Inst-Surgical ---
Discharge Inst-Surgical Depart Medication/Instructions New, Converted or Re-Newed RX: Other (continue home meds, no new meds to take) Patient Instructions Follow up Appt: Make appointment for [address] Ivory. [phone] Symptoms to Report: Appetite Changes, Extremity Discoloration, Numbness/Tingling, Swelling Increased, Bleeding Excessive, Eyesight Changes, Pain Increased, Urine Color Change, Constipation(Persistent), Fever over 101 degree F, Pain/Pressure in chest, Urinating Difficulty, Cough Up/Vomit Blood, Heart Beat Irreg/Pounding, Pain/Pressure in jaw, Cramps in feet or legs, Lightheadedness, Pain/Pressure in shoulder, Diarrhea(Persistent), Memory Changes Suddenly, Questions/Concerns, Weight gain consecutive days, Dizziness/Fainting, Nausea/Vomiting, Shortness of Breath, Weight gain over 2 pounds If questions or concerns contact your physician Or seek help at emergency department. Activity Activity as Tolerated: Yes Driving Instructions: You May Drive Diet Discharge Diet: No Restrictions Diet After 24 Hours: Clear Liquid if Nauseous Skin/Wound Care Bathing Instructions: SUDHIR Hodge DO Jul 05, 2020 14:49
[2020-07-05 15:31] VITALS: BP 124/73
== END 2020-07-05 14:52 | disposition home or self-care (01) ==
LOC: EDUNIT# 23:38 → ER 23:39 → 4TH 23:40 → UNDOADMOB 07-04 03:53 → UNDODISOB 07-05 16:00
PROVIDERS: ADMIT Surgery; ATTEND Surgery
DX: K92.1 Melena (principal); K57.91 Diverticulosis of intestine, part unspecified, without perforation or abscess with bleeding; I10 Essential (primary) hypertension; E78.00 Pure hypercholesterolemia, unspecified; Z79.899 Other long term (current) drug therapy; Z87.891 Personal history of nicotine dependence
CPT/HCPCS: 74022; 74177; 80053 ×2; 81000; 82150; 82274; 83690; 83735; 85014; 85018; 85025 ×2; 85610; 85730; 86850; 86900; 86901; 93041; 96360; 99284; G0378; 36415

== ENCOUNTER → 2020-07-27 | Outpatient (CLI) | payer MEDICARE, BC ==
[~2020-07-27] VITALS: Ht 177.8 cm; Wt 79.5 kg
[~2020-07-27] MED LIST changes: +CALC-250 PO; +NAPR220T66 PO
== END | disposition home or self-care (01) ==
LOC: PREOP 05:41
PROVIDERS: ATTEND Surgery
DX: Z01.818 Encounter for other preprocedural examination (principal)

== ENCOUNTER 2020-08-03 10:35 | Day surgery (SDC) | payer MEDICARE, BC ==
[~2020-08-03] VITALS: Ht 177.8 cm; Wt 79.5 kg
[~2020-08-03 10:35] MED LIST changes: +LACTATED RINGERS 1,000 ML IV ONE
[2020-08-03] MEDS ORDERED: LACTATED RINGERS 1,000 ML IV STA (10:42)
[2020-08-03 10:55] VITALS: BP 148/92
[2020-08-03] MEDS ORDERED: MIDAZOLAM 2 MG/2 ML (VERSED) VIAL ONE (10:59)
[2020-08-03] MEDS ORDERED: PROPOFOL INJECTION 50 ML IV ONE ×2 (10:59→11:27)
--- NOTE | 2020-08-03 11:11 | Progress Note-Pre Operative ---
Pre-Operative Progress Note H&P Reviewed The H&P was reviewed, patient examined and no changes noted. Date Seen by Provider: August 03, 2020 Time Seen by Provider: 11:10 Date H&P Reviewed: August 03, 2020 Time H&P Reviewed: 11:10 Pre-Operative Diagnosis: blood in stool SHAGUFTA MINOR DO August 03, 2020 11:11
--- NOTE | 2020-08-03 11:44 | Discharge Inst-Simple/Standard ---
Discharge Inst-Standard Patient Instructions/Follow Up Plan of Care/Instructions/FU: Dr. Ivory on as needed basis. Repeat colonoscopy if any change in condition. Activity as Tolerated: Yes Discharge Diet: Regular Diet (high fiber) SHAGUFTA IVORY DO August 03, 2020 11:44
[2020-08-03 11:45] VITALS: BP 118/70
--- NOTE | 2020-08-03 11:45 | Progress Note-Post Operative ---
Post-Operative Progess Note Surgeon (s)/Sandwich And Drink Cart Operator (s) Surgeon SHAGUFTA MINOR DO Sandwich And Drink Cart Operator: na Pre-Operative Diagnosis blood in stool Post-Operative Diagnosis diverticulosis Procedure & Operative Findings Date of Procedure 08/03/20 Procedure Performed/Findings colonoscopy Anesthesia Type per fringing machine operator Estimated Blood Loss Estimated blood loss (mL): none Specimens/Packing Specimens Removed na SHAGUFTA MINOR DO August 03, 2020 11:45
[2020-08-03 11:50] VITALS: BP 124/74
[2020-08-03 11:55] VITALS: BP 124/74
[2020-08-03 12:30] VITALS: BP 126/72
--- NOTE | 2020-08-03 13:02 | OPERATIVE REPORT ---
DATE OF SERVICE: 08/03/2020 PREOPERATIVE DIAGNOSIS: Blood in stool. POSTOPERATIVE DIAGNOSIS: Diverticulosis. PROCEDURE: Colonoscopy. SURGEON: Shagufta Ivory DO ANESTHESIA: Per INTERACTIVE VIDEO TECHNICIAN. ESTIMATED BLOOD LOSS: None. COMPLICATIONS: None. INDICATIONS: The patient is a 69-year-old male with recent admission due to blood in stool. He understands risks and benefits of procedure and wished to proceed with procedure. Consent was signed in the chart. DESCRIPTION OF PROCEDURE: The patient was taken to the endoscopy suite, placed in left lateral recumbent position. Timeout was performed. Digital rectal exam was performed. No palpable polyps, masses or ulcerations. Scope was inserted in the rectum and advanced all the way to cecum with minimal difficulty. Prep was adequate with irrigation and suction. Some areas of larger debris present. Scope was then slowly retracted back. There were no polyps, masses or ulcerations noted within the cecum, ascending, transverse, descending and sigmoid colon. In the ascending colon to the sigmoid, there was diverticulosis present. Once in the rectum, scope was retroflexed noting some internal hemorrhoids. No other pathology. Scope was returned to its normal position, slowly withdrawn until completely removed. The patient tolerated procedure well without any complications. He was taken to recovery room in stable condition. RECOMMENDATIONS: The patient will follow up on an as needed basis. If he has any change in condition, he should be reevaluated to discuss colonoscopy again. Job ID: [id number] DocumentID: [id number] Dictated Date: 08/03/2020 11:47:13 Escapement Matcher Date: 08/03/2020 13:01:14 Dictated By: SHAGUFTA IVORY DO MTDD
--- NOTE | 2020-08-03 14:01 | Anesthesia-General Post-Op ---
MAC Patient Condition Mental Status/LOC: Same as Preop Cardiovascular: Satisfactory Nausea/Vomiting: Absent Respiratory: Satisfactory Pain: Controlled Complications: Absent Post Op Complications Complications None Follow Up Care/Instructions Patient Instructions None needed. Anesthesiology Discharge Order Discharge Order Patient is doing well, no complaints, stable vital signs, no apparent adverse anesthesia problems. No complications reported per nursing. MOHINDER MORILLO CRNA August 03, 2020 14:01
== END 2020-08-03 12:50 | disposition home or self-care (01) ==
LOC: ENDO 10:35
PROVIDERS: ATTEND Surgery
DX: K92.1 Melena (principal); K57.30 Diverticulosis of large intestine without perforation or abscess without bleeding; K64.8 Other hemorrhoids; I10 Essential (primary) hypertension; E78.5 Hyperlipidemia, unspecified; E78.00 Pure hypercholesterolemia, unspecified; Z79.82 Long term (current) use of aspirin; Z79.899 Other long term (current) drug therapy; Z90.89 Acquired absence of other organs; Z87.891 Personal history of nicotine dependence; Z80.9 Family history of malignant neoplasm, unspecified; Z83.3 Family history of diabetes mellitus

== ENCOUNTER → 2020-10-14 | Outpatient (CLI) | payer BC, MEDICARE ==
[~2020-10-14] MED LIST changes: -LACTATED RINGERS 1,000 ML IV ONE
[2020-10-14 11:08] LABS: ALBUMIN 3.9 GM/DL (3.2-4.5); BILIRUBIN,TOTAL 1.1 MG/DL (0.1-1.0); CALCIUM 9.7 MG/DL (8.5-10.1); CREATININE SERUM 1.17 MG/DL (0.60-1.30); POTASSIUM 4.3 MMOL/L (3.6-5.0); TOTAL PROTEIN 6.7 GM/DL (6.4-8.2)
== END ==
LOC: LAB 09:49
PROVIDERS: ATTEND Family Medicine
DX: I10 Essential (primary) hypertension (principal)
CPT/HCPCS: 36415; 80053; 80061

== ENCOUNTER → 2021-04-27 | Outpatient (CLI) | payer MEDICARE, BC ==
[2021-04-27 09:16] LABS: ALBUMIN 4.3 GM/DL (3.2-4.5); BILIRUBIN,TOTAL 1.3 MG/DL (0.1-1.0); CALCIUM 9.9 MG/DL (8.5-10.1); CREATININE SERUM 1.17 MG/DL (0.60-1.30); POTASSIUM 4.4 MMOL/L (3.6-5.0)
== END ==
LOC: LAB 08:27
PROVIDERS: ATTEND Nurse Practitioner Adult Health
DX: Z12.5 Encounter for screening for malignant neoplasm of prostate (principal); I10 Essential (primary) hypertension
CPT/HCPCS: 80053; 80061; G0103; 36415; 84153

== ENCOUNTER → 2021-10-24 | Outpatient (CLI) | payer MEDICARE, BC ==
[~2021-10-24] MED LIST changes: -TRIA1CAP4 PO; +TRIA1CAP84 PO
[2021-10-24 10:48] LABS: ALBUMIN 4.2 GM/DL (3.2-4.5); POTASSIUM 4.5 MMOL/L (3.6-5.0)
[2021-10-24 10:50] LABS: TOTAL PROTEIN 6.6 GM/DL (6.4-8.2)
[2021-10-24 10:52] LABS: BILIRUBIN,TOTAL 1.1 MG/DL (0.1-1.0)
[2021-10-24 10:54] LABS: CREATININE SERUM 1.19 MG/DL (0.60-1.30)
== END ==
LOC: LAB 09:57
PROVIDERS: ATTEND Family Medicine
DX: I10 Essential (primary) hypertension (principal)
CPT/HCPCS: 36415; 80053; 80061

== ENCOUNTER → 2021-11-04 | Outpatient (CLI) | payer MEDICARE, BC ==
--- NOTE | 2021-11-04 09:56 | Diagnostic Imaging Report ---
INDICATION: Left knee pain 3 views of the left knee show narrowing of the medial tibiofemoral joint space that measures 3 mm in thickness versus the lateral compartment that measures 7 mm in thickness. There is slight cortical irregularity of the opposing articular surfaces in the medial compartment. There are osteophytes forming on the medial margin of the joint. IMPRESSION: Mild to moderate degenerative changes medial compartment of left knee. Dictated by: Dictated on workstation # [id number]
== END ==
LOC: RAD 09:11
PROVIDERS: ATTEND Family Medicine
DX: M17.12 Unilateral primary osteoarthritis, left knee (principal)
CPT/HCPCS: 73562

== ENCOUNTER → 2021-11-08 | Outpatient (CLI) | payer MEDICARE, BC | LOC: ORTHO 11:08 | PROVIDERS: ATTEND Orthopaedic Surgery | DX: M17.12 Unilateral primary osteoarthritis, left knee (principal); I10 Essential (primary) hypertension | CPT/HCPCS: 99203 ==